=== PATIENT | female | born 1960 | race Caucasian/White ===

== ENCOUNTER → 2016-04-24 | Outpatient (CLI) | payer MEDICAID, MEDICARE ==
[~2016-04-24] MED LIST: ABIL5TAB OR; CRES20TA OR; EFFE75CA75 OR; NEUR100C OR; NEUR300C OR; OMEP20TA7 OR; TRAZ100T OR; TRIC145T19 OR
[2016-04-24 08:32] LABS: ALBUMIN 3.7 GM/DL (3.2-5.2); ALBUMIN/GLOBULIN RATIO 1.12 (1.00-1.93); ALKALINE PHOSPHATASE 97 U/L (45-117); ALT/SGPT 20 U/L (12-78); ANION GAP 8 MEQ/L (8-16); AST/SGOT 17 U/L (15-37); BILIRUBIN,TOTAL 0.3 MG/DL (0.2-1.0); BLOOD UREA NITROGEN 14 MG/DL (7-18); CALCIUM LEVEL 9.9 MG/DL (8.5-10.1); CARBON DIOXIDE LEVEL 28 MEQ/L (21-32); CHLORIDE LEVEL 102 MEQ/L (98-107); CHOLESTEROL LEVEL 256 MG/DL (<200); CREATININE FOR GFR 0.83 MG/DL (0.55-1.02); GLOMERULAR FILTRATION RATE > 60.0 (>51); GLUCOSE, FASTING 104 MG/DL (70-105); POTASSIUM SERUM 4.6 MEQ/L (3.5-5.1); SODIUM LEVEL 138 MEQ/L (136-145); TRIGLYCERIDES LEVEL 192 MG/DL (<150)
[2016-04-24 08:44] LABS: MEAN CORPUSCULAR HEMOGLOBIN 27.7 pg (27.0-33.0); MEAN CORPUSCULAR HGB CONC 33.6 g/dl (32.0-36.5); MEAN CORPUSCULAR VOLUME 82.5 fl (80.0-96.0); RED CELL DISTRIBUTION WIDTH 14.3 % (11.5-14.5); WHITE BLOOD COUNT 6.4 K/mm3 (4.0-10.0)
== END ==
LOC: M LAB 07:22
PROVIDERS: ATTEND Nurse Practitioner Family
DX: E78.5 Hyperlipidemia, unspecified (principal); E55.9 Vitamin D deficiency, unspecified; D64.9 Anemia, unspecified

== ENCOUNTER 2016-05-24 06:07 | Emergency (ER) | payer MEDICARE ==
[2016-05-24] MEDS ORDERED: ONDANSETRON 4MG/2ML VIAL (J2405) As Ordered ONE (07:50)
[2016-05-24] MEDS ORDERED: MORPHINE 4 MG/ML 1ML SYRINGE As Ordered ONE (07:50)
--- NOTE | 2016-05-24 07:52 | REP ---
Clinical: Trauma. Technique: AP and Y view right shoulder . Findings: The patient is status post anteroinferior glenohumeral joint dislocation. Hill-Sachs deformity cannot be excluded. Acromioclavicular joint is normal. Surrounding soft tissues are unremarkable. Old rib fractures identified. Impression: Acute anteroinferior glenohumeral joint dislocation. Signed by Josr Rogel MD 05/24/2016 07:44 A
--- NOTE | 2016-05-24 09:10 | REP ---
Clinical: Status post reduction. Technique: Single frontal neutral view of the right shoulder. Findings: Seemingly satisfactory reduction is appreciated. Subtle Hill-Sachs deformity along the visualized lateral aspect of the humeral head is suggested. Cortical irregularity at the acromioclavicular joint suggests underlying degenerative change. Impression: Seemingly satisfactory reduction. Subtle Hill-Sachs deformity to the humeral head. Mild degenerative changes at the acromioclavicular joint. Signed by Josr Rogel MD 05/24/2016 09:01 A
--- NOTE | 2016-05-24 09:25 | EDDOCDS ---
Nurse's Notes [facility] Name: Hiwot Doe Age: 55 yrs Sex: Female : 1960 Arrival Date: 05/24/2016 Time: 06:07 Bed 1 Private MD: Diagnosis: Recurrent dislocation, right shoulder-reduced Presentation: 05/24 06:10 Presenting complaint: Patient states: pt states she was playing with her cat and mlc tripped. pt reports shoulder is out of place, this has happened 4 times before. pt reports she is due for surgery to correct issue. Adult Sepsis Screening: The patient does not have new or worsening altered mentation. Patient's respiratory rate is less than 22. Systolic blood pressure is greater than 100. Patient has a qSOFA score of 0- Negative Sepsis Screen. Suicide/Homicide risk assessment- the patient denies having any suicidal and/or homicidal ideations and does not present with any other emotional, behavioral or mental health complaints. Status: Patient is not a air deodorizer servicer or dependent. Transition of care: patient was not received from another setting of care. 06:10 Acuity: REMY Level 3 [facility] 06:10 Method Of Arrival: Walkin/Carried/Asstd mlc Triage Assessment: 06:12 General: Appears in no apparent distress, Behavior is cooperative. Pain: Location: [facility] anterior aspect of right shoulder Pain currently is 8 out of 10 on a pain scale. HIV screening NA for this visit Offered previously. The patient is triaged at the bedside. See Assessment in Nurses Notes section of ED record. Neurological: Level of Consciousness is awake, alert, Oriented to person, place, time. Cardiovascular: Capillary refill < 3 seconds. Respiratory: Airway is patent Respiratory effort is even, unlabored, Respiratory pattern is regular. 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 Abilify 5 mg Oral tab 1 tab once daily 2. Effexor 150mg Oral 150 mg daily 3. omeprazole 20 mg Oral cpDR 1 cap once daily - PMHx: Anxiety; Depression; GERD; Alcoholism; - PSHx: left humerus surgery; - The history from nurses notes was reviewed: and I agree with what is documented. - Social history: Smoking status: Patient uses tobacco products, current every day smoker. No barriers to communication noted, The patient speaks fluent Tajik. - Family history: Not pertinent. - : The pt / caregiver states he / she is not on anticoagulants. Home medication list is obtained from the patient. - Hospitalizations: : No recent hospitalization is reported. - Exposure Risk Screening:: None identified. - Immunization history:: All immunizations up-to-date. - Social history:: the patient is a non-smoker, the patient drinks alcohol, including recently. Screenin:15 Screening information is obtained from the patient. Fall risk: No risks identified. ja5 Assistance ADL's: requires no assistance with activities of daily living. Abuse/DV Screen: The patient / caregiver reports he/she is: not in a situation that causes fear, pain or injury. Nutritional screening: On no prescribed diet. Advance Directives: Currently, there is no health care proxy. There is no active DNR order. There is no living will. There is no Power of Painter Drum. home support is adequate. Assessment: 06:31 General: Appears in no apparent distress, comfortable, Behavior is appropriate for age, cf2 cooperative. Pain:. Neurological: No deficits noted. EENT: No deficits noted. Cardiovascular: No deficits noted. Respiratory: No deficits noted. GI: No deficits noted. : No deficits noted. Derm: No deficits noted. Musculoskeletal: Circulation, motion, and sensation intact Capillary refill < 3 seconds Range of motion limited in right shoulder. Injury Description: No known injury. 07:13 General: Appears uncomfortable, Behavior is appropriate for age, cooperative. Pain: ja5 Location: right shoulder Pain currently is 10 out of 10 on a pain scale. Neurological: Oriented to person, place, time. Cardiovascular: Capillary refill < 3 seconds Heart tones S1 S2 present Pulses are palpable in right radial artery. Respiratory: Airway is patent Respiratory effort is even, unlabored. Derm: Skin is pink, warm & dry. Musculoskeletal: Circulation, motion, and sensation intact Range of motion limited in right shoulder. 08:15 General: Patient in stretcher, SR on transfer controller respirations even and unlabored, ja5 color is pink, family at bedside. Provider at bedside to manually manipulate right shoulder. Morphine and zofran previously administered. Shoulder was successfully put back into place and patient states "oh this feels much better already." Bed in low position, call hassan in reach.. 09:11 General: Appears in no apparent distress, comfortable, Behavior is appropriate for age, ja5 cooperative. Neurological: Oriented to person, place, time. Cardiovascular: Capillary refill < 3 seconds Heart tones S1 S2 present Pulses are palpable in right radial artery Rhythm is sinus rhythm No ectopy. Respiratory: Airway is patent Respiratory effort is even, unlabored. Derm: Skin is pink, warm & dry. Musculoskeletal: Circulation, motion, and sensation intact Range of motion limited in right shoulder and right arm. 09:22 General: Patient ambulatory with steady gait, discharged home with family present, ja5 discharge instructions received, patient reported that she is not driving home and that she "feels so much better." . Vital Signs: 06:12 BP 125 / 78; Pulse 98; Resp 20; Temp 97.7(O); Pulse Ox 96% ; Weight 74.84 kg (R); [facility] Height 5 ft. 8 in. (172.72 cm) (R); Pain 8/10; 07:31 BP 144 / 96; Pulse 84; Resp 20; Temp 96.8(O); Pulse Ox 97% on R/A; Pain 10/10; ja5 09:06 BP 157 / 99; Pulse 90; Resp 20; Temp 97.6(O); Pulse Ox 98% on R/A; Pain 2/10; ja5 09:07 Pain 2/10; ja5 06:12 Body Mass Index 25.09 (74.84 kg, 172.72 cm) [facility] Vitals: 06:12 Log In Time: May 24, 2016 at 06:08. [facility] ED Course: 06:08 Patient visited by Sue Mendez, Reg. hs2 06:08 Patient visited by Sue Mendez, Reg. hs2 06:08 Patient moved to [facility] hs2 06:11 Triage Initiated [facility] 06:16 Patient visited by Rina Degroot RN. [facility] 06:17 Ester Colon,KAREL is Primary Nurse. cf2 06:20 Patient moved to [facility] 06:31 Patient visited by Ester Colon,KAREL. cf2 06:31 The patient / caregiver is instructed regarding the plan of care and ED course. cf2 06:49 Patient visited by Ester Colon,KAREL. cf2 06:49 Patient visited by Ester Colon RN. cf2 07:09 Bobby Grant MD is Attending Physician. pc 07:11 Patient visited by Bobby Grant MD. pc 07:12 Jordyn Da Silva RN is Primary Nurse. jc4 07:16 Patient visited by Lashae Mercado RN. ja5 07:49 Patient moved to [facility] 08:08 Inserted saline lock: 20 gauge in left antecubital area. ja5 08:09 Patient visited by Lashae Mercado RN. ja5 08:10 Shoulder (1 View) Returned. EDMS 08:15 Assist provider with reduction of right shoulder. ja5 08:20 Shoulder immobilizer applied on right shoulder. ja5 08:49 Tho Goldberg is Referral Physician. pc 09:07 [facility] Payment Agreement was scanned into [employer] and attached to record. mm15 09:10 Discontinued lock intact, bleeding controlled, pressure dressing applied, No ja5 redness/swelling at site. Administered Medications: 08:00 Drug: Ondansetron 4 mg [ondansetron HCl 2 mg/mL intravenous solution (2 mL)] Route: ja5 IVP; Site: left antecubital; 08:08 Drug: morphine 4 mg [morphine 4 mg/mL intravenous cartridge (1 mL)] Route: IVP; Site: ja5 left antecubital; 09:07 Follow up: Pain 2/10 Adult ja5 Order Results: Radiology Order: Shoulder (1 View) Test: Shoulder (1 View) REASON FOR EXAMINATION: Trauma; Clinical: Trauma.; ; Technique: AP and Y view right shoulder .; ; Findings:; The patient is status post anteroinferior glenohumeral joint dislocation.; Hill-Sachs deformity cannot be excluded. Acromioclavicular joint is normal.; Surrounding soft tissues are unremarkable. Old rib fractures identified.; ; Impression:; Acute anteroinferior glenohumeral joint dislocation.; ; ; Signed by; Josr Rogel MD 05/24/2016 07:44 A; Outcome: 08:49 Discharge ordered by Provider. pc 09:20 Discharge Assessment: Patient awake, alert and oriented x 3. No cognitive and/or ja5 functional deficits noted. Patient verbalized understanding of disposition instructions. Patient awake and alert. patient administered narcotics - yes. Pt provided with safe discharge. The following High Risk Discharge criteria are identified: None. Discharged to home via ambulance, with parent. Condition: stable. Discharge instructions given to patient, Instructed on discharge instructions, follow up and referral plans. medication usage, no driving heavy equipment, use of immobilizer Demonstrated understanding of instructions, medications, Pt was receptive of discharge instructions/ teaching. Prescriptions given X 1. No special radiology studies were completed. Property :Personal belongings accompany Pt. 09:25 Patient left the ED. [email or web address] Signatures: Dispatcher [employer] EDMS Bobby Grant MD MD pc Johnson, Bruce, RN RN Dav Groves RN RN Jordyn Sanchez RN RN jc4 Hugo Montemayor mm15 Rina Degroot,RN RN [facility] Sue Mendez, Reg Reg hs2 Ester ColonRN RN cf2 Lashae MercadoRN RN [email or web address] Corrections: (The following items were deleted from the chart) 07:31 07:13 Cardiovascular: Capillary refill < 3 seconds Heart tones S1 S2 present ja5 ja5 09:17 09:13 General: ja5 5 :19 08:15 Assist provider with reduction of right shoulder ja5 ja5 :19 08:15 Discontinued lock intact, bleeding controlled, pressure dressing applied, No ja5 redness/swelling at site. 5 : 09:21 Shoulder immobilizer applied on right shoulder. 5 [facility] MTDD
--- NOTE | 2016-05-24 09:25 | EDDOCDS ---
Physician Documentation [facility] Name: Hiwot Doe Age: 55 yrs Sex: Female : 1960 Arrival Date: 05/24/2016 Time: 06:07 Bed 1 Private MD: Disposition: 05/24 08:47 Critical Care: Critical care not applicable. Disposition: 05/24/16 08:49 Discharged to Home/Self Care. Impression: Recurrent dislocation, right shoulder - reduced. - Condition is Stable. - Discharge Instructions: Shoulder Dislocation, Shoulder Immobilizer. - Prescriptions for [place] 5- 325 mg Oral Tablet - take 1 tablet by ORAL route every 6 hours As needed MDD: 4 tabs; 20 tablet. - Medication Reconciliation, Local Pharmacy Hours form. - Follow up: Tho Goldberg; When: Call to arrange an appointment; Reason: Recheck today's complaints, Continuance of care. - Problem is new. - Symptoms are resolved. HPI: 07:16 This 55 yrs old Female presents to ER via Walkin/Carried/Asstd with pc complaints of Shoulder Injury. 07:16 The history is obtained from the patient. She dislocated her right shoulder reaching for her cat. It is her 5th such dislocation without trauma. It was reduced in the ED this morning, by Dr. Nobles, without sedation and with ease, with the shoulder falling out of joint with gravity. At their worst, the symptoms were a 8 out of 10. In the emergency department, the symptoms are a 8 out of 10. The patient has been recently seen by an orthopedic surgeon. Historical: - Allergies: No known drug Allergies; - Home Meds: 1. Abilify 5 mg Oral tab 1 tab once daily 2. Effexor 150mg Oral 150 mg daily 3. omeprazole 20 mg Oral cpDR 1 cap once daily - PMHx: Anxiety; Depression; GERD; Alcoholism; - PSHx: left humerus surgery; - The history from nurses notes was reviewed: and I agree with what is documented. - Social history: Smoking status: Patient uses tobacco products, current every day smoker. No barriers to communication noted, The patient speaks fluent Vietnamese. - Family history: Not pertinent. - : The pt / caregiver states he / she is not on anticoagulants. Home medication list is obtained from the patient. - Hospitalizations: : No recent hospitalization is reported. - Exposure Risk Screening:: None identified. - Immunization history:: All immunizations up-to-date. - Social history:: the patient is a non-smoker, the patient drinks alcohol, including recently. 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 pc Exam: 07:16 General Appearance: alert, the patient is in mild distress, strong odor of alcohol. pc 07:16 Extremities: grossly normal except: noted in the anterior aspect of right shoulder: anterior fullness and decreased ROM. NVT normal distally, vadim. axillary nerve.. Vital Signs: 06:12 BP 125 / 78; Pulse 98; Resp 20; Temp 97.7(O); Pulse Ox 96% ; Weight 74.84 kg / 164.99 mlc lbs (R); Height 5 ft. 8 in. (172.72 cm) (R); Pain 8/10; 07:31 BP 144 / 96; Pulse 84; Resp 20; Temp 96.8(O); Pulse Ox 97% on R/A; Pain 10/10; ja5 09:06 BP 157 / 99; Pulse 90; Resp 20; Temp 97.6(O); Pulse Ox 98% on R/A; Pain 2/10; ja5 09:07 Pain 2/10; ja5 06:12 Body Mass Index 25.09 (74.84 kg, 172.72 cm) mlc Procedures: 08:25 Joint Reduction: of the right shoulder, using traction, Immobilized with shoulder pc immoblizer. Patient tolerated well. 08:47 Joint Reduction: Post reduction film - reveals normal alignment. pc MDM: 06:26 Shoulder (1 View) Ordered. EDMS 07:24 Differential Diagnosis: recurrent dislocation of right shoulder with suspected pc completed rotator cuff tear. Plan: d/w Ortho. 07:49 IV Saline Lock ordered. pc 07:49 morphine 4 mg IVP once ordered. pc 07:49 Ondansetron 4 mg IVP once ordered. pc 07:50 NOTHING BY MOUTH+DIET ordered. EDMS 08:15 Shoulder (1 View) Reviewed. pc 08:27 Shoulder (1 View) Ordered. EDMS 08:47 Data reviewed: old medical records, vital signs, nurses notes, all radiology studies pc and available results. Test interpretation: X-RAY - interpreted by Radiologist and personally reviewed, Shoulder Right Dislocation - anterior. 08:47 Test interpretation: X-RAY - interpreted by me, Shoulder Right Post-reduction Reduced pc with normal allignment. The patient has been re-examined and re-evaluated. The patient's symptoms have resolved after treatment. Physician consultation: Dr. Tho Goldberg regarding patient's condition, and advises the medications/treatment as provided. and agrees with the treatment provided and advises the discharge plans as outlined. Disposition: The historical points, examination findings, and any diagnostic results supporting the provided diagnosis, were discussed with the patient or legal guardian. The need for outpatient follow up with the provider listed on their discharge instructions was discussed. They were encouraged to return to [facility], or the nearest ED, if symptoms worsen/persist, or for any other questions/concerns. 09:01 Financial registration complete. mm15 : [facility] Payment Agreement was scanned into [employer] and attached to record. mm15 Administered Medications: 08:00 Drug: Ondansetron 4 mg [ondansetron HCl 2 mg/mL intravenous solution (2 mL)] Route: ja5 IVP; Site: left antecubital; 08:08 Drug: morphine 4 mg [morphine 4 mg/mL intravenous cartridge (1 mL)] Route: IVP; Site: ja5 left antecubital; 09:07 Follow up: Pain 2/10 Adult ja5 Signatures: Dispatcher [employer] Bobby Simon MD MD pc McGrath, Marlynn mm15 Rina Degroot RN RN [facility] Ester Colon RN RN 2 Lashae Mercado RN RN ja5 The chart was reviewed and I authenticate all verbal orders and agree with the evaluation and treatment provided.Attachments: : [facility] Payment Agreement mm15 MTDD
--- NOTE | 2016-05-26 10:25 | EDDOCDS ---
Physician Documentation [facility] Name: Hiwot Doe Age: 55 yrs Sex: Female : 1960 Arrival Date: 05/24/2016 Time: 06:07 Bed 1 Private MD: Disposition: 05/24 08:47 Critical Care: Critical care not applicable. Disposition: 05/24/16 08:49 Discharged to Home/Self Care. Impression: Recurrent dislocation, right shoulder - reduced. - Condition is Stable. - Discharge Instructions: Shoulder Dislocation, Shoulder Immobilizer. - Prescriptions for [place] 5- 325 mg Oral Tablet - take 1 tablet by ORAL route every 6 hours As needed MDD: 4 tabs; 20 tablet. - Medication Reconciliation, Local Pharmacy Hours form. - Follow up: Tho Goldberg; When: Call to arrange an appointment; Reason: Recheck today's complaints, Continuance of care. - Problem is new. - Symptoms are resolved. HPI: 07:16 This 55 yrs old Female presents to ER via Walkin/Carried/Asstd with pc complaints of Shoulder Injury. 07:16 The history is obtained from the patient. She dislocated her right shoulder reaching for her cat. It is her 5th such dislocation without trauma. It was reduced in the ED this morning, by Dr. Nobles, without sedation and with ease, with the shoulder falling out of joint with gravity. At their worst, the symptoms were a 8 out of 10. In the emergency department, the symptoms are a 8 out of 10. The patient has been recently seen by an orthopedic surgeon. Historical: - Allergies: No known drug Allergies; - Home Meds: 1. Abilify 5 mg Oral tab 1 tab once daily 2. Effexor 150mg Oral 150 mg daily 3. omeprazole 20 mg Oral cpDR 1 cap once daily - PMHx: Anxiety; Depression; GERD; Alcoholism; - PSHx: left humerus surgery; - The history from nurses notes was reviewed: and I agree with what is documented. - Social history: Smoking status: Patient uses tobacco products, current every day smoker. No barriers to communication noted, The patient speaks fluent Sudanese. - Family history: Not pertinent. - : The pt / caregiver states he / she is not on anticoagulants. Home medication list is obtained from the patient. - Hospitalizations: : No recent hospitalization is reported. - Exposure Risk Screening:: None identified. - Immunization history:: All immunizations up-to-date. - Social history:: the patient is a non-smoker, the patient drinks alcohol, including recently. 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 pc Exam: 07:16 General Appearance: alert, the patient is in mild distress, strong odor of alcohol. pc 07:16 Extremities: grossly normal except: noted in the anterior aspect of right shoulder: anterior fullness and decreased ROM. NVT normal distally, vadim. axillary nerve.. Vital Signs: 06:12 BP 125 / 78; Pulse 98; Resp 20; Temp 97.7(O); Pulse Ox 96% ; Weight 74.84 kg / 164.99 mlc lbs (R); Height 5 ft. 8 in. (172.72 cm) (R); Pain 8/10; 07:31 BP 144 / 96; Pulse 84; Resp 20; Temp 96.8(O); Pulse Ox 97% on R/A; Pain 10/10; ja5 08:04 BP 161 / 101 (auto/); ja5 08:04 Pulse 83 MON; Pulse Ox 97% ; ja5 08:07 BP 161 / 103 (auto/); ja5 08:08 Pulse 87 MON; Pulse Ox 97% ; ja5 08:15 BP 156 / 97 (auto/); ja5 08:16 Pulse 85 MON; Pulse Ox 95% ; ja5 08:30 BP 163 / 106 (auto/); ja5 08:30 Pulse 83 MON; Pulse Ox 99% ; ja5 09:06 BP 157 / 99; Pulse 90; Resp 20; Temp 97.6(O); Pulse Ox 98% on R/A; Pain 2/10; ja5 09:07 Pain 2/10; ja5 06:12 Body Mass Index 25.09 (74.84 kg, 172.72 cm) mlc Procedures: 08:25 Joint Reduction: of the right shoulder, using traction, Immobilized with shoulder pc immoblizer. Patient tolerated well. 08:47 Joint Reduction: Post reduction film - reveals normal alignment. pc MDM: 06:26 Shoulder (1 View) Ordered. EDMS 07:24 Differential Diagnosis: recurrent dislocation of right shoulder with suspected pc completed rotator cuff tear. Plan: d/w Ortho. 07:49 IV Saline Lock ordered. pc 07:49 morphine 4 mg IVP once ordered. pc 07:49 Ondansetron 4 mg IVP once ordered. pc 07:50 NOTHING BY MOUTH+DIET ordered. EDMS 08:15 Shoulder (1 View) Reviewed. pc 08:27 Shoulder (1 View) Ordered. EDMS 08:47 Data reviewed: old medical records, vital signs, nurses notes, all radiology studies pc and available results. Test interpretation: X-RAY - interpreted by Radiologist and personally reviewed, Shoulder Right Dislocation - anterior. 08:47 Test interpretation: X-RAY - interpreted by me, Shoulder Right Post-reduction Reduced pc with normal allignment. The patient has been re-examined and re-evaluated. The patient's symptoms have resolved after treatment. Physician consultation: Dr. Tho Goldberg regarding patient's condition, and advises the medications/treatment as provided. and agrees with the treatment provided and advises the discharge plans as outlined. Disposition: The historical points, examination findings, and any diagnostic results supporting the provided diagnosis, were discussed with the patient or legal guardian. The need for outpatient follow up with the provider listed on their discharge instructions was discussed. They were encouraged to return to [facility], or the nearest ED, if symptoms worsen/persist, or for any other questions/concerns. 09:01 Financial registration complete. mm15 09:07 [facility] Payment Agreement was scanned into [employer] and attached to record. mm15 Administered Medications: 08:00 Drug: Ondansetron 4 mg [ondansetron HCl 2 mg/mL intravenous solution (2 mL)] Route: ja5 IVP; Site: left antecubital; 08:08 Drug: morphine 4 mg [morphine 4 mg/mL intravenous cartridge (1 mL)] Route: IVP; Site: ja5 left antecubital; 09:07 Follow up: Pain 2/10 Adult ja5 Signatures: Dispatcher [employer] EDAR Bobby Grant MD MD pc McGrath, Marlynn mm15 Rina Degroot RN RN [facility] Ester Colon RN RN 2 Lashae Mercado RN RN ja5 The chart was reviewed and I authenticate all verbal orders and agree with the evaluation and treatment provided.Attachments: 09:07 [facility] Payment Agreement mm15 Chart Complete MTDD
--- NOTE | 2016-05-26 10:25 | EDDOCDS ---
Physician Documentation [facility] Name: Hiwot Doe Age: 55 yrs Sex: Female : 1960 Arrival Date: 05/24/2016 Time: 06:07 Bed 1 Private MD: Disposition: 05/24 08:47 Critical Care: Critical care not applicable. Disposition: 05/24/16 08:49 Discharged to Home/Self Care. Impression: Recurrent dislocation, right shoulder - reduced. - Condition is Stable. - Discharge Instructions: Shoulder Dislocation, Shoulder Immobilizer. - Prescriptions for [place] 5- 325 mg Oral Tablet - take 1 tablet by ORAL route every 6 hours As needed MDD: 4 tabs; 20 tablet. - Medication Reconciliation, Local Pharmacy Hours form. - Follow up: Tho Goldberg; When: Call to arrange an appointment; Reason: Recheck today's complaints, Continuance of care. - Problem is new. - Symptoms are resolved. HPI: 07:16 This 55 yrs old Female presents to ER via Walkin/Carried/Asstd with pc complaints of Shoulder Injury. 07:16 The history is obtained from the patient. She dislocated her right shoulder reaching for her cat. It is her 5th such dislocation without trauma. It was reduced in the ED this morning, by Dr. Nobles, without sedation and with ease, with the shoulder falling out of joint with gravity. At their worst, the symptoms were a 8 out of 10. In the emergency department, the symptoms are a 8 out of 10. The patient has been recently seen by an orthopedic surgeon. Historical: - Allergies: No known drug Allergies; - Home Meds: 1. Abilify 5 mg Oral tab 1 tab once daily 2. Effexor 150mg Oral 150 mg daily 3. omeprazole 20 mg Oral cpDR 1 cap once daily - PMHx: Anxiety; Depression; GERD; Alcoholism; - PSHx: left humerus surgery; - The history from nurses notes was reviewed: and I agree with what is documented. - Social history: Smoking status: Patient uses tobacco products, current every day smoker. No barriers to communication noted, The patient speaks fluent [place]. - Family history: Not pertinent. - : The pt / caregiver states he / she is not on anticoagulants. Home medication list is obtained from the patient. - Hospitalizations: : No recent hospitalization is reported. - Exposure Risk Screening:: None identified. - Immunization history:: All immunizations up-to-date. - Social history:: the patient is a non-smoker, the patient drinks alcohol, including recently. 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 pc Exam: 07:16 General Appearance: alert, the patient is in mild distress, strong odor of alcohol. pc 07:16 Extremities: grossly normal except: noted in the anterior aspect of right shoulder: anterior fullness and decreased ROM. NVT normal distally, vadim. axillary nerve.. Vital Signs: 06:12 BP 125 / 78; Pulse 98; Resp 20; Temp 97.7(O); Pulse Ox 96% ; Weight 74.84 kg / 164.99 mlc lbs (R); Height 5 ft. 8 in. (172.72 cm) (R); Pain 8/10; 07:31 BP 144 / 96; Pulse 84; Resp 20; Temp 96.8(O); Pulse Ox 97% on R/A; Pain 10/10; ja5 08:04 BP 161 / 101 (auto/); ja5 08:04 Pulse 83 MON; Pulse Ox 97% ; ja5 08:07 BP 161 / 103 (auto/); ja5 08:08 Pulse 87 MON; Pulse Ox 97% ; ja5 08:15 BP 156 / 97 (auto/); ja5 08:16 Pulse 85 MON; Pulse Ox 95% ; ja5 08:30 BP 163 / 106 (auto/); ja5 08:30 Pulse 83 MON; Pulse Ox 99% ; ja5 09:06 BP 157 / 99; Pulse 90; Resp 20; Temp 97.6(O); Pulse Ox 98% on R/A; Pain 2/10; ja5 09:07 Pain 2/10; ja5 06:12 Body Mass Index 25.09 (74.84 kg, 172.72 cm) mlc Procedures: 08:25 Joint Reduction: of the right shoulder, using traction, Immobilized with shoulder pc immoblizer. Patient tolerated well. 08:47 Joint Reduction: Post reduction film - reveals normal alignment. pc MDM: 06:26 Shoulder (1 View) Ordered. EDMS 07:24 Differential Diagnosis: recurrent dislocation of right shoulder with suspected pc completed rotator cuff tear. Plan: d/w Ortho. 07:49 IV Saline Lock ordered. pc 07:49 morphine 4 mg IVP once ordered. pc 07:49 Ondansetron 4 mg IVP once ordered. pc 07:50 NOTHING BY MOUTH+DIET ordered. EDMS 08:15 Shoulder (1 View) Reviewed. pc 08:27 Shoulder (1 View) Ordered. EDMS 08:47 Data reviewed: old medical records, vital signs, nurses notes, all radiology studies pc and available results. Test interpretation: X-RAY - interpreted by Radiologist and personally reviewed, Shoulder Right Dislocation - anterior. 08:47 Test interpretation: X-RAY - interpreted by me, Shoulder Right Post-reduction Reduced pc with normal allignment. The patient has been re-examined and re-evaluated. The patient's symptoms have resolved after treatment. Physician consultation: Dr. Tho Goldberg regarding patient's condition, and advises the medications/treatment as provided. and agrees with the treatment provided and advises the discharge plans as outlined. Disposition: The historical points, examination findings, and any diagnostic results supporting the provided diagnosis, were discussed with the patient or legal guardian. The need for outpatient follow up with the provider listed on their discharge instructions was discussed. They were encouraged to return to [facility], or the nearest ED, if symptoms worsen/persist, or for any other questions/concerns. 09:01 Financial registration complete. mm15 09:07 [facility] Payment Agreement was scanned into [employer] and attached to record. mm15 Administered Medications: 08:00 Drug: Ondansetron 4 mg [ondansetron HCl 2 mg/mL intravenous solution (2 mL)] Route: ja5 IVP; Site: left antecubital; 08:08 Drug: morphine 4 mg [morphine 4 mg/mL intravenous cartridge (1 mL)] Route: IVP; Site: ja5 left antecubital; 09:07 Follow up: Pain 2/10 Adult ja5 Signatures: Dispatcher [employer] EDMT Bobby Grant MD MD pc McGrath, Marlynn mm15 Rnia Degroot RN RN [facility] Ester Colon RN RN 2 Lashae Mercado RN RN ja5 The chart was reviewed and I authenticate all verbal orders and agree with the evaluation and treatment provided.Attachments: 09:07 [facility] Payment Agreement mm15 Chart Complete MTDD
--- NOTE | 2016-05-26 10:25 | EDDOCDS ---
Nurse's Notes [facility] Name: Hiwot Doe Age: 55 yrs Sex: Female : 1960 Arrival Date: 05/24/2016 Time: 06:07 Bed 1 Private MD: Diagnosis: Recurrent dislocation, right shoulder-reduced Presentation: 05/24 06:10 Presenting complaint: Patient states: pt states she was playing with her cat and mlc tripped. pt reports shoulder is out of place, this has happened 4 times before. pt reports she is due for surgery to correct issue. Adult Sepsis Screening: The patient does not have new or worsening altered mentation. Patient's respiratory rate is less than 22. Systolic blood pressure is greater than 100. Patient has a qSOFA score of 0- Negative Sepsis Screen. Suicide/Homicide risk assessment- the patient denies having any suicidal and/or homicidal ideations and does not present with any other emotional, behavioral or mental health complaints. 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 Transition of care: patient was not received from another setting of care. 06:10 Acuity: REMY Level 3 [facility] 06:10 Method Of Arrival: Walkin/Carried/Asstd mlc Triage Assessment: 06:12 General: Appears in no apparent distress, Behavior is cooperative. Pain: [place] [facility] anterior aspect of right shoulder Pain currently is 8 out of 10 on a pain scale. HIV screening NA for this visit Offered previously. The patient is triaged at the bedside. See Assessment in Nurses Notes section of ED record. Neurological: Level of Consciousness is awake, alert, Oriented to person, place, time. Cardiovascular: Capillary refill < 3 seconds. Respiratory: Airway is patent Respiratory effort is even, unlabored, Respiratory pattern is regular. 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 Abilify 5 mg Oral tab 1 tab once daily 2. Effexor 150mg Oral 150 mg daily 3. omeprazole 20 mg Oral cpDR 1 cap once daily - PMHx: Anxiety; Depression; GERD; Alcoholism; - PSHx: left humerus surgery; - The history from nurses notes was reviewed: and I agree with what is documented. - Social history: Smoking status: Patient uses tobacco products, current every day smoker. No barriers to communication noted, The patient speaks fluent Ukrainian. - Family history: Not pertinent. - : The pt / caregiver states he / she is not on anticoagulants. Home medication list is obtained from the patient. - Hospitalizations: : No recent hospitalization is reported. - Exposure Risk Screening:: None identified. - Immunization history:: All immunizations up-to-date. - Social history:: the patient is a non-smoker, the patient drinks alcohol, including recently. Screenin:15 Screening information is obtained from the patient. Fall risk: No risks identified. ja5 Assistance ADL's: requires no assistance with activities of daily living. Abuse/DV Screen: The patient / caregiver reports he/she is: not in a situation that causes fear, pain or injury. Nutritional screening: On no prescribed diet. Advance Directives: Currently, there is no health care proxy. There is no active DNR order. There is no living will. There is no Power of Clinical Account Executive. home support is adequate. Assessment: 06:31 General: Appears in no apparent distress, comfortable, Behavior is appropriate for age, cf2 cooperative. Pain:. Neurological: No deficits noted. EENT: No deficits noted. Cardiovascular: No deficits noted. Respiratory: No deficits noted. GI: No deficits noted. : No deficits noted. Derm: No deficits noted. Musculoskeletal: Circulation, motion, and sensation intact Capillary refill < 3 seconds Range of motion limited in right shoulder. Injury Description: No known injury. 07:13 General: Appears uncomfortable, Behavior is appropriate for age, cooperative. Pain: ja5 Location: right shoulder Pain currently is 10 out of 10 on a pain scale. Neurological: Oriented to person, place, time. Cardiovascular: Capillary refill < 3 seconds Heart tones S1 S2 present Pulses are palpable in right radial artery. Respiratory: Airway is patent Respiratory effort is even, unlabored. Derm: Skin is pink, warm & dry. Musculoskeletal: Circulation, motion, and sensation intact Range of motion limited in right shoulder. 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 Provider at bedside to manually manipulate right shoulder. Morphine and zofran previously administered. Shoulder was successfully put back into place and patient states "oh this feels much better already." Bed in low position, call hassan in reach.. 09:11 General: Appears in no apparent distress, comfortable, Behavior is appropriate for age, ja5 cooperative. Neurological: Oriented to person, place, time. Cardiovascular: Capillary refill < 3 seconds Heart tones S1 S2 present Pulses are palpable in right radial artery Rhythm is sinus rhythm No ectopy. Respiratory: Airway is patent Respiratory effort is even, unlabored. Derm: Skin is pink, warm & dry. Musculoskeletal: Circulation, motion, and sensation intact Range of motion limited in right shoulder and right arm. 09:22 General: Patient ambulatory with steady gait, discharged home with family present, ja5 discharge instructions received, patient reported that she is not driving home and that she "feels so much better." . Vital Signs: 06:12 BP 125 / 78; Pulse 98; Resp 20; Temp 97.7(O); Pulse Ox 96% ; Weight 74.84 kg (R); [facility] Height 5 ft. 8 in. (172.72 cm) (R); Pain 8/10; 07:31 BP 144 / 96; Pulse 84; Resp 20; Temp 96.8(O); Pulse Ox 97% on R/A; Pain 10/10; ja5 08:04 BP 161 / 101 (auto/); ja5 08:04 Pulse 83 MON; Pulse Ox 97% ; ja5 08:07 BP 161 / 103 (auto/); ja5 08:08 Pulse 87 MON; Pulse Ox 97% ; ja5 08:15 BP 156 / 97 (auto/); ja5 08:16 Pulse 85 MON; Pulse Ox 95% ; ja5 08:30 BP 163 / 106 (auto/); ja5 08:30 Pulse 83 MON; Pulse Ox 99% ; ja5 09:06 BP 157 / 99; Pulse 90; Resp 20; Temp 97.6(O); Pulse Ox 98% on R/A; Pain 2/10; ja5 09:07 Pain 2/10; ja5 06:12 Body Mass Index 25.09 (74.84 kg, 172.72 cm) [facility] Vitals: 06:12 Log In Time: May 24, 2016 at 06:08. [facility] ED Course: 06:08 Patient visited by Sue Mendez, Reg. hs2 06:08 Patient visited by Sue Mendez, Reg. hs2 06:08 Patient moved to Waiting hs2 06:11 Triage Initiated [facility] 06:16 Patient visited by Rina Degroot RN. mlc 06:17 Ester Colon,KAREL is Primary Nurse. cf2 06:20 Patient moved to 5 cz 06:31 Patient visited by Ester Colon RN. cf2 06:31 The patient / caregiver is instructed regarding the plan of care and ED course. cf2 06:49 Patient visited by Ester Colon RN. cf2 06:49 Patient visited by Ester Colon RN. cf2 07:09 Bobby Grant MD is Attending Physician. pc 07:11 Patient visited by Bobby Grant MD. pc 07:12 Jordyn Da Silva RN is Primary Nurse. jc4 07:16 Patient visited by Lashae Mercado RN. ja5 07:49 Patient moved to [facility] 08:08 Inserted saline lock: 20 gauge in left antecubital area. ja5 08:09 Patient visited by Lashae Mercado RN. ja5 08:10 Shoulder (1 View) Returned. EDMS 08:15 Assist provider with reduction of right shoulder. ja5 08:20 Shoulder immobilizer applied on right shoulder. ja5 08:49 Tho Goldberg is Referral Physician. pc 09:07 [facility] Payment Agreement was scanned into [employer] and attached to record. mm15 09:10 Discontinued lock intact, bleeding controlled, pressure dressing applied, No ja5 redness/swelling at site. 09:39 Shoulder (1 View) Returned. EDMS Administered Medications: 08:00 Drug: Ondansetron 4 mg [ondansetron HCl 2 mg/mL intravenous solution (2 mL)] Route: ja5 IVP; Site: left antecubital; 08:08 Drug: morphine 4 mg [morphine 4 mg/mL intravenous cartridge (1 mL)] Route: IVP; Site: ja5 left antecubital; 09:07 Follow up: Pain 2/10 Adult ja5 Order Results: Radiology Order: Shoulder (1 View) Test: Shoulder (1 View) REASON FOR EXAMINATION: Trauma; Clinical: Trauma.; ; Technique: AP and Y view right shoulder .; ; Findings:; The patient is status post anteroinferior glenohumeral joint dislocation.; Hill-Sachs deformity cannot be excluded. Acromioclavicular joint is normal.; Surrounding soft tissues are unremarkable. Old rib fractures identified.; ; Impression:; Acute anteroinferior glenohumeral joint dislocation.; ; ; Signed by; Josr Rogel MD 05/24/2016 07:44 A; Radiology Order: Shoulder (1 View) Test: Shoulder (1 View) REASON FOR EXAMINATION: post-reduction; Clinical: Status post reduction.; ; Technique: Single frontal neutral view of the right shoulder.; ; Findings:; Seemingly satisfactory reduction is appreciated. Subtle Hill-Sachs deformity; along the visualized lateral aspect of the humeral head is suggested. Cortical; irregularity at the acromioclavicular joint suggests underlying degenerative; change.; ; Impression:; Seemingly satisfactory reduction.; Subtle Hill-Sachs deformity to the humeral head.; Mild degenerative changes at the acromioclavicular joint.; ; ; Signed by; Josr Rogel MD 05/24/2016 09:01 A; Outcome: 08:49 Discharge ordered by Provider. pc 09:20 Discharge Assessment: Patient awake, alert and oriented x 3. No cognitive and/or ja5 functional deficits noted. Patient verbalized understanding of disposition instructions. Patient awake and alert. patient administered narcotics - yes. Pt provided with safe discharge. The following High Risk Discharge criteria are identified: None. Discharged to home via ambulance, with parent. Condition: stable. Discharge instructions given to patient, Instructed on discharge instructions, follow up and referral plans. medication usage, no driving heavy equipment, use of immobilizer Demonstrated understanding of instructions, medications, Pt was receptive of discharge instructions/ teaching. Prescriptions given X 1. No special radiology studies were completed. Property :Personal belongings accompany Pt. 09:25 Patient left the ED. ja5 Signatures: Dispatcher [employer] EDMS Bobby Grant MD MD pc Johnson, Bruce, RN Dav Rollins RN RN cz Castle, Jennifer, RN RN Hugo Ng mm15 Rina Degroot RN RN [facility] Sue Mendez, Reg Reg hs2 Ester Colon RN RN cf2 Lashae Mercado RN RN ja5 Corrections: (The following items were deleted from the chart) 07:31 07:13 Cardiovascular: Capillary refill < 3 seconds Heart tones S1 S2 present ja5 ja5 09:13 General: ja5 jaAlesia 08:15 Assist provider with reduction of right shoulder zina ja5 08:15 Discontinued lock intact, bleeding controlled, pressure dressing applied, No ja5 redness/swelling at site. ja5 09:21 Shoulder immobilizer applied on right shoulder. ja5 ja5 Chart Complete MTDD
== END 2016-05-24 09:25 | disposition home or self-care (01) ==
LOC: M ED 06:07
DX: M24.411 Recurrent dislocation, right shoulder (principal); F41.9 Anxiety disorder, unspecified; F32.9 Major depressive disorder, single episode, unspecified; K21.9 Gastro-esophageal reflux disease without esophagitis; Z78.0 Asymptomatic menopausal state; F10.10 Alcohol abuse, uncomplicated; Z79.899 Other long term (current) drug therapy
CPT/HCPCS: 23650; 73020; 96374; 96375; 99285; J2405

== ENCOUNTER → 2016-06-12 | Outpatient (CLI) | payer MEDICARE ==
[~2016-06-12] MED LIST changes: +CONRAY-43 43% 50ML VIAL (Q9960) As Ordered ONE
--- NOTE | 2016-06-12 09:59 | REP ---
MR arthrography right shoulder: with pre and post intra-articular gadolinium enhanced saline injected imaging: History: Right shoulder pain. Instability with multiple dislocation injuries, most recent of which was 2 weeks ago according to the patient. Comparison radiographs are from May 24, 2016. Technique: The injection procedure is performed and dictated separately. Pre and post intra-articular gadolinium enhanced saline injected imaging is acquired. Imaging planes include axial, oblique coronal, oblique sagittal and ABER projection images. T1 T2-weighted scans are included with and without fat saturation. MRI findings: Pre-injection MR imaging shows a glenohumeral joint effusion and a moderate size subacromial subdeltoid bursal effusion. There is a small quantity of fluid in the hypertrophied AC joint as well. Cortical and medullary bone signal intensity are normal except for some mild marrow edema in the superolateral aspect of the humeral head adjacent to a fairly large Hill-Sachs impaction fracture deformity. No bony Bankart fracture is appreciated. The glenohumeral articulation is normally aligned. The biceps tendon is in the bony bicipital groove and appears intact. There is an oval-shaped low T2 signal intensity loose body 6 mm in diameter in the caudal aspect axillary recess region of the glenohumeral articulation. Superior labrum appears intact. The anterior cartilaginous labrum appears deficient on pre-injection imaging. Pre-injection oblique coronal T1 and T2-weighted scans demonstrate attenuation and heterogeneous increased signal intensity in the supraspinatus tendon with focal T2 hyperintensity consistent with a partial thickness distal supraspinatus tendon tear. There is inferolateral spurring of the acromion process and mild inferior spurring of the distal clavicle at the AC joint. Minimal articular spurring is seen in the inferior margin of the humeral head. Post injection imaging shows good filling and enhancement of the right glenohumeral articulation. No other loose body is seen. There is an irregular and displaced tear of the anterior cartilaginous labrum. The infraspinatus and subscapularis tendons appear intact. Oblique coronal T1-weighted post injection imaging shows enhancement extending through the distal supraspinatus tendon and partially into the subacromial subdeltoid bursal effusion consistent with a full-thickness supraspinatus cuff tear. No other abnormality. Impression: 1. Evidence of recurrent glenohumeral instability with a large Hill-Sachs impaction fracture of the superolateral humeral head. There is a tear of the anterior cartilaginous labrum which appears deficient. A small loose body is seen. 2. There is evidence of a full-thickness supraspinatus cuff tear with diffuse attenuation of the distal supraspinatus tendon. Subacromial subdeltoid bursal effusion is seen. 3. AC joint osteoarthritis and acromion process spurring are also noted. Signed by Yosef Cervantes MD 06/12/2016 06:17 P
--- NOTE | 2016-06-12 18:22 | REP ---
Procedure: Right shoulder arthrogram The procedure was performed under the direct supervision of Dr. Cervantes. History: Right shoulder pain The benefits and risks including but not limited to pain, infection, bleeding and anaphylaxis were explained to the patient and informed consent was obtained. Technique: The right glenohumeral joint space was localized using fluoroscopic guidance. The skin was prepped and draped in a sterile fashion. 1% lidocaine was used as a local anesthetic. Using fluoroscopic guidance a 22 gauge spinal needle was inserted and advanced into the joint. 0.5 ml of Conray 43 was injected to verify placement. 11 ml of a solution containing 20 ml of sterile saline and 0.15 ml of ProHance was injected into the joint. The needle was removed and the patient was taken to MRI for postprocedural imaging. The the patient tolerated the procedure well and there were no immediate complications. Less than 1 second of fluoro time was utilized for this procedure. Reviewed by FREDIS Jones 06/12/2016 08:26 ASigned by Yosef Cervantes MD 06/12/2016 06:13 P
== END | disposition home or self-care (01) ==
LOC: M RADPRO 06:45
PROVIDERS: ATTEND Physician Assistant
DX: S42.201A Unspecified fracture of upper end of right humerus, initial encounter for closed fracture (principal); X58.XXXA Exposure to other specified factors, initial encounter; Y92.89 Other specified places as the place of occurrence of the external cause; Y93.89 Activity, other specified; Y99.8 Other external cause status; M75.92 Shoulder lesion, unspecified, left shoulder; M75.101 Unspecified rotator cuff tear or rupture of right shoulder, not specified as traumatic; M25.411 Effusion, right shoulder; M19.011 Primary osteoarthritis, right shoulder; M25.711 Osteophyte, right shoulder
CPT/HCPCS: 23350; 73223; 77002; A9576; Q9960

== ENCOUNTER → 2016-09-12 | Outpatient (CLI) | payer MEDICARE ==
[~2016-09-12] MED LIST changes: -CONRAY-43 43% 50ML VIAL (Q9960) As Ordered ONE
[2016-09-12 08:04] LABS: ANION GAP 8 MEQ/L (8-16); BLOOD UREA NITROGEN 18 MG/DL (7-18); CALCIUM LEVEL 9.4 MG/DL (8.5-10.1); CARBON DIOXIDE LEVEL 26 MEQ/L (21-32); CHLORIDE LEVEL 103 MEQ/L (98-107); CREATININE FOR GFR 0.84 MG/DL (0.55-1.02); GLOMERULAR FILTRATION RATE > 60.0 (>51); GLUCOSE, FASTING 101 MG/DL (70-105); POTASSIUM SERUM 4.4 MEQ/L (3.5-5.1); SODIUM LEVEL 137 MEQ/L (136-145)
--- NOTE | 2016-09-12 09:40 | REP ---
PA and lateral chest: Comparisons 05/05/2015. Lung alcantara are clear. Cardiac size is normal. The nila and mediastinum are unremarkable and unchanged. There are old healed right rib fractures, unchanged. There is a fixed hiatal hernia, unchanged. Impression: Essentially negative chest. No interval change. Fixed hiatal hernia is again identified. Signed by Channing Nj MD 09/12/2016 09:33 A
--- NOTE | 2016-09-12 17:00 | ECGEPIP ---
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
== END ==
LOC: M LAB 06:53
PROVIDERS: ATTEND Nurse Practitioner Family
DX: Z01.812 Encounter for preprocedural laboratory examination (principal); K44.9 Diaphragmatic hernia without obstruction or gangrene; F17.200 Nicotine dependence, unspecified, uncomplicated; I10 Essential (primary) hypertension

== ENCOUNTER 2016-11-27 08:15 | Outpatient (RCR) | payer MEDICAID, MEDICARE | END 2016-11-28 | LOC: M PT 08:15 | PROVIDERS: ATTEND Orthopaedic Surgery | DX: Z51.89 Encounter for other specified aftercare (principal); M25.311 Other instability, right shoulder | CPT/HCPCS: 97110; 97140; 97161; G8984; G8985 ==

== ENCOUNTER 2016-12-23 08:10 | Outpatient (RCR) | payer MEDICARE | END 2016-12-28 | LOC: M PT 08:10 | PROVIDERS: ATTEND Orthopaedic Surgery | DX: Z51.89 Encounter for other specified aftercare (principal); M25.311 Other instability, right shoulder | CPT/HCPCS: 97110; 97140; G8984; G8985 ==

== ENCOUNTER 2017-01-27 08:48 | Outpatient (RCR) | payer MEDICARE | END 2017-01-28 | disposition home or self-care (01) | LOC: M PT 08:48 | PROVIDERS: ATTEND Orthopaedic Surgery | DX: Z51.89 Encounter for other specified aftercare (principal); M25.311 Other instability, right shoulder | CPT/HCPCS: 97110; 97140; 97530; G8984; G8985; G8986 ==

== ENCOUNTER 2017-03-14 08:27 | Emergency (ER) | payer MEDICARE ==
[~2017-03-14] VITALS: Ht 172.7 cm; Wt 80.0 kg
[2017-03-14] MEDS ORDERED: FENO145T (09:14)
[2017-03-14] MEDS ORDERED: METO1TAB7 (09:14)
[2017-03-14] MEDS ORDERED: NORCO, ANEXSIA 5/325MG TABLET (HYDROcodone/ACETAMINOPHEN) PO ONE (09:30)
--- NOTE | 2017-03-14 10:05 | REP ---
Right shoulder four views: Comparison is 05/24/2016. The acromioclavicular joint demonstrates mild osteoarthritis. The subacromial space is unremarkable. No calcifications. I suspect a Hill-Sachs deformity of the humeral head compatible with prior this location. There is no acute dislocation. No acute fracture. Impression: Hill-Sachs deformity of the humeral head. No acute fracture or dislocation. Old right rib fractures are noted incidentally. Signed by Channing Nj MD 03/14/2017 09:56 A
[2017-03-14] MEDS ORDERED: NAPR500T PO (10:47)
[2017-03-14] MEDS ORDERED: ULTR50TA8 PO (10:47)
[2017-03-14] MEDS ORDERED: ROBA500T PO (10:47)
[2017-03-14 10:57] VITALS: BP 132/85
== END 2017-03-14 11:00 | disposition home or self-care (01) ==
LOC: M ED 08:27
DX: S46.091A Other injury of muscle(s) and tendon(s) of the rotator cuff of right shoulder, initial encounter (principal); S43.001A Unspecified subluxation of right shoulder joint, initial encounter; W19.XXXA Unspecified fall, initial encounter; Y92.9 Unspecified place or not applicable; Y93.9 Activity, unspecified; Y99.9 Unspecified external cause status; Z79.899 Other long term (current) drug therapy

== ENCOUNTER → 2017-03-21 | Outpatient (CLI) | payer MEDICARE ==
[~2017-03-21] MED LIST changes: +FENO145T; +METO1TAB7; +NAPR500T PO; +ROBA500T PO; +ULTR50TA8 PO
[2017-03-21 09:31] LABS: ANION GAP 9 MEQ/L (8-16); BLOOD UREA NITROGEN 10 MG/DL (7-18); CALCIUM LEVEL 8.7 MG/DL (8.5-10.1); CARBON DIOXIDE LEVEL 27 MEQ/L (21-32); CHLORIDE LEVEL 105 MEQ/L (98-107); CREATININE FOR GFR 0.67 MG/DL (0.55-1.02); GLOMERULAR FILTRATION RATE > 60.0 (>51); GLUCOSE, FASTING 87 MG/DL (70-105); POTASSIUM SERUM 4.1 MEQ/L (3.5-5.1); SODIUM LEVEL 141 MEQ/L (136-145)
--- NOTE | 2017-03-22 01:18 | ECGEPIP ---
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
== END ==
LOC: M LAB 08:33
PROVIDERS: ATTEND Orthopaedic Surgery
DX: Z01.818 Encounter for other preprocedural examination (principal)

== ENCOUNTER → 2017-04-22 | Outpatient (REF) | payer MEDICARE ==
[2017-04-22 14:00] LABS: BASO # 0.1 10^3/uL (0.0-0.2); BASO % 1.2 % (0.0-1.0); EOS # 0.2 10^3/uL (0.0-0.50); EOS % 3.1 % (0.0-3.0); HEMATOCRIT 36.4 % (36.0-47.0); HEMOGLOBIN 12.2 g/dl (12.0-16.0); IMMATURE GRANULOCYTE % 0.2 % (0-0); LYMPH # 1.7 10^3/uL (1.5-4.5); LYMPH % 33.1 % (24.0-44.0); MEAN CORPUSCULAR HEMOGLOBIN 29.5 pg (27.0-33.0); MEAN CORPUSCULAR HGB CONC 33.5 g/dl (32.0-36.5); MEAN CORPUSCULAR VOLUME 87.9 fl (80.0-96.0); MONO # 0.3 10^3/uL (0.0-0.8); MONO % 4.9 % (0.0-5.0); NEUTROPHILS # 2.9 10^3/uL (1.8-7.7); NEUTROPHILS % 57.5 % (36.0-66.0); PLATELET COUNT, AUTOMATED 404 10^3/uL (150-450); RED BLOOD COUNT 4.14 10^6/uL (4.00-5.40); RED CELL DISTRIBUTION WIDTH 12.6 % (11.5-14.5); WHITE BLOOD COUNT 5.1 10^3/uL (4.0-10.0)
[2017-04-22 14:28] LABS: TOTAL 25(OH) VITAMIN D 16.6 NG/ML (30.0-100.0)
[2017-04-22 14:29] LABS: ALBUMIN 3.7 GM/DL (3.2-5.2); ALBUMIN/GLOBULIN RATIO 1.16 (1.00-1.93); ALKALINE PHOSPHATASE 93 U/L (45-117); ALT/SGPT 22 U/L (12-78); ANION GAP 8 MEQ/L (8-16); AST/SGOT 19 U/L (7-37); BILIRUBIN,TOTAL 0.3 MG/DL (0.2-1.0); BLOOD UREA NITROGEN 9 MG/DL (7-18); CALCIUM LEVEL 9.5 MG/DL (8.5-10.1); CARBON DIOXIDE LEVEL 28 MEQ/L (21-32); CHLORIDE LEVEL 102 MEQ/L (98-107); CHOLESTEROL LEVEL 225 MG/DL (<200); CHOLESTEROL RISK RATIO 3.813 (<5); CREATININE FOR GFR 0.72 MG/DL (0.55-1.02); GLOMERULAR FILTRATION RATE > 60.0 (>51); GLUCOSE, FASTING 92 MG/DL (70-100); HDL CHOLESTEROL 59 MG/DL (>40); IRON (FE) 64 UG/DL (50-170); LDL CHOLESTEROL 111.2 MG/DL (<100); NON-HDL-C 166 MG/DL; POTASSIUM SERUM 4.3 MEQ/L (3.5-5.1); SODIUM LEVEL 138 MEQ/L (136-145); TOTAL PROTEIN 6.9 GM/DL (6.4-8.2); TRIGLYCERIDES LEVEL 274 MG/DL (<150)
[2017-04-22 14:50] LABS: ESTIMATED AVERAGE GLUCOSE 117 MG/DL (60-110); HEMOGLOBIN A1c 5.7 %
== END ==
LOC: M LAB REF 13:31
DX: I10 Essential (primary) hypertension (principal); E78.5 Hyperlipidemia, unspecified; E66.3 Overweight; D64.9 Anemia, unspecified; E55.9 Vitamin D deficiency, unspecified
CPT/HCPCS: 83540

== ENCOUNTER 2017-04-29 07:53 | Emergency (ER) | payer MEDICARE ==
[2017-04-29] MEDS: NORCO, ANEXSIA 5/325MG TABLET (HYDROcodone/ACETAMINOPHEN) PO (08:33)
== END 2017-04-29 09:03 | disposition home or self-care (01) ==
LOC: M ED 07:53
DX: S42.291A Other displaced fracture of upper end of right humerus, initial encounter for closed fracture (principal); S42.354A Nondisplaced comminuted fracture of shaft of humerus, right arm, initial encounter for closed fracture; Z87.81 Personal history of (healed) traumatic fracture; W00.9XXA Unspecified fall due to ice and snow, initial encounter; Y92.410 Unspecified street and highway as the place of occurrence of the external cause; Y93.9 Activity, unspecified; Z79.899 Other long term (current) drug therapy
CPT/HCPCS: 73030

== ENCOUNTER 2017-06-18 08:56 | Outpatient (RCR) | payer MEDICARE, MEDICAID | END 2017-06-28 | LOC: M PT 08:56 | DX: Z51.89 Encounter for other specified aftercare (principal); S42.291D Other displaced fracture of upper end of right humerus, subsequent encounter for fracture with routine healing; Z98.890 Other specified postprocedural states | CPT/HCPCS: 97110 ==

== ENCOUNTER 2017-07-04 08:51 | Outpatient (RCR) | payer MEDICARE | END 2017-07-28 | LOC: M PT 08:51 | DX: Z47.89 Encounter for other orthopedic aftercare (principal); S42.291D Other displaced fracture of upper end of right humerus, subsequent encounter for fracture with routine healing; M25.311 Other instability, right shoulder | CPT/HCPCS: 97110 ==

== ENCOUNTER 2017-07-29 07:45 | Outpatient (RCR) | payer MEDICARE | END 2017-08-28 | LOC: M PT 07-31 07:30 | DX: Z47.89 Encounter for other orthopedic aftercare (principal); S42.291A Other displaced fracture of upper end of right humerus, initial encounter for closed fracture; M25.311 Other instability, right shoulder | CPT/HCPCS: 97110 ==

== ENCOUNTER 2017-09-02 08:52 | Outpatient (RCR) | payer MEDICARE | END 2017-09-27 | LOC: M PT 08:52 | DX: Z47.89 Encounter for other orthopedic aftercare (principal); S42.291A Other displaced fracture of upper end of right humerus, initial encounter for closed fracture; M25.311 Other instability, right shoulder | CPT/HCPCS: 97110 ==

== ENCOUNTER 2017-09-30 09:54 | Outpatient (RCR) | payer MEDICARE | END 2017-10-28 | LOC: M PT 09:54 | DX: Z51.89 Encounter for other specified aftercare (principal); S42.291D Other displaced fracture of upper end of right humerus, subsequent encounter for fracture with routine healing; M25.311 Other instability, right shoulder; X58.XXXD Exposure to other specified factors, subsequent encounter; Y92.9 Unspecified place or not applicable; Y93.9 Activity, unspecified; Y99.9 Unspecified external cause status; Z79.899 Other long term (current) drug therapy | CPT/HCPCS: 97110 ==

== ENCOUNTER → 2018-03-16 | Outpatient (CLI) | payer MEDICARE ==
[~2018-03-16] MED LIST changes: -FENO145T; +FENO145T13; +NAPR-49 PO; -NAPR500T PO; +NORCOTAB PO
[2018-03-16 08:37] LABS: BASO # 0.1 10^3/uL (0.0-0.2); BASO % 0.9 % (0.0-1.0); EOS # 0.3 10^3/uL (0.0-0.50); EOS % 3.6 % (0.0-3.0); HEMATOCRIT 39.6 % (36.0-47.0); HEMOGLOBIN 13.2 g/dl (12.0-15.5); LYMPH # 1.9 10^3/uL (1.5-4.5); LYMPH % 27.6 % (24.0-44.0); MEAN CORPUSCULAR HEMOGLOBIN 28.7 pg (27.0-33.0); MEAN CORPUSCULAR HGB CONC 33.3 g/dl (32.0-36.5); MEAN CORPUSCULAR VOLUME 86.1 fl (80.0-96.0); MONO # 0.5 10^3/uL (0.0-0.8); MONO % 7.2 % (0.0-5.0); NEUTROPHILS # 4.1 10^3/uL (1.8-7.7); NEUTROPHILS % 60.4 % (36.0-66.0); PLATELET COUNT, AUTOMATED 318 10^3/uL (150-450); WHITE BLOOD COUNT 6.9 10^3/uL (4.0-10.0)
[2018-03-16 09:25] LABS: ALBUMIN 3.7 GM/DL (3.2-5.2); ALT/SGPT 22 U/L (12-78); BILIRUBIN,TOTAL 0.3 MG/DL (0.2-1.0); BLOOD UREA NITROGEN 11 MG/DL (7-18); CALCIUM LEVEL 9.8 MG/DL (8.5-10.1); CARBON DIOXIDE LEVEL 28 MEQ/L (21-32); CHLORIDE LEVEL 105 MEQ/L (98-107); CHOLESTEROL LEVEL 236 MG/DL (<200); CHOLESTEROL RISK RATIO 3.746 (<5); CREATININE FOR GFR 0.78 MG/DL (0.55-1.30); GLOMERULAR FILTRATION RATE > 60.0 (>51); GLUCOSE, FASTING 101 MG/DL (70-100); HDL CHOLESTEROL 63 MG/DL (>40); IRON (FE) 87 UG/DL (50-170); LDL CHOLESTEROL 134 MG/DL (<100); NON-HDL-C 173 MG/DL; POTASSIUM SERUM 4.4 MEQ/L (3.5-5.1); SODIUM LEVEL 140 MEQ/L (136-145); TOTAL PROTEIN 6.8 GM/DL (6.4-8.2); TRIGLYCERIDES LEVEL 194 MG/DL (<150)
== END ==
LOC: M LAB 07:47
PROVIDERS: ATTEND Nurse Practitioner Adult Health
DX: E78.5 Hyperlipidemia, unspecified (principal); D64.9 Anemia, unspecified; I10 Essential (primary) hypertension

== ENCOUNTER → 2018-10-19 | Outpatient (REF) | payer MEDICARE ==
[~2018-10-19] MED LIST changes: +HYDR-3715 PO; -NAPR-49 PO; +NAPR-837 PO; -NORCOTAB PO
[2018-10-19 13:08] LABS: BASO # 0.1 10^3/uL (0.0-0.2); BASO % 0.9 % (0.0-1.0); EOS # 0.5 10^3/uL (0.0-0.50); EOS % 6.6 % (0.0-3.0); HEMATOCRIT 41.3 % (36.0-47.0); HEMOGLOBIN 13.6 g/dl (12.0-15.5); LYMPH % 25.9 % (24.0-44.0); MEAN CORPUSCULAR HEMOGLOBIN 28.3 pg (27.0-33.0); MEAN CORPUSCULAR HGB CONC 32.9 g/dl (32.0-36.5); MEAN CORPUSCULAR VOLUME 85.9 fl (80.0-96.0); MONO # 0.4 10^3/uL (0.0-0.8); MONO % 5.6 % (0.0-5.0); NEUTROPHILS # 4.8 10^3/uL (1.8-7.7); NEUTROPHILS % 60.5 % (36.0-66.0); PLATELET COUNT, AUTOMATED 332 10^3/uL (150-450); RED BLOOD COUNT 4.81 10^6/uL (4.00-5.40); WHITE BLOOD COUNT 7.9 10^3/uL (4.0-10.0)
[2018-10-19 13:20] LABS: ALBUMIN 3.5 GM/DL (3.2-5.2); ALT/SGPT 21 U/L (12-78); BILIRUBIN,TOTAL 0.3 MG/DL (0.2-1.0); BLOOD UREA NITROGEN 9 MG/DL (7-18); CALCIUM LEVEL 9.5 MG/DL (8.5-10.1); CARBON DIOXIDE LEVEL 28 MEQ/L (21-32); CHLORIDE LEVEL 105 MEQ/L (98-107); CHOLESTEROL LEVEL 159 MG/DL (<200); CHOLESTEROL RISK RATIO 2.092 (<5); CREATININE FOR GFR 0.87 MG/DL (0.55-1.30); FREE T4 0.91 NG/DL (0.76-1.46); GLOMERULAR FILTRATION RATE > 60.0 (>51); GLUCOSE, FASTING 102 MG/DL (70-100); HDL CHOLESTEROL 76 MG/DL (>40); LDL CHOLESTEROL 60 MG/DL (<100); NON-HDL-C 83 MG/DL; POTASSIUM SERUM 4.4 MEQ/L (3.5-5.1); SODIUM LEVEL 138 MEQ/L (136-145); TOTAL PROTEIN 6.6 GM/DL (6.4-8.2); TRIGLYCERIDES LEVEL 117 MG/DL (<150)
[2018-10-19 13:22] LABS: TOTAL 25(OH) VITAMIN D 15.2 NG/ML (30.0-100.0)
[2018-10-19 13:58] LABS: HEMOGLOBIN A1c 6.1 %
[2018-10-21 00:06] LABS: Lyme Disease IgG Ab 18 kDa Ban Present (.); Lyme Disease IgG Ab 23 kDa Ban Absent (.); Lyme Disease IgG Ab 28 kDa Ban Absent (.); Lyme Disease IgG Ab 30 kDa Ban Absent (.); Lyme Disease IgG Ab 39 kDa Ban Absent (.); Lyme Disease IgG Ab 41 kDa Ban Absent (.); Lyme Disease IgG Ab 45 kDa Ban Absent (.); Lyme Disease IgG Ab 58 kDa Ban Absent (.); Lyme Disease IgG Ab 66 kDa Ban Absent (.); Lyme Disease IgG Ab 93 kDa Ban Absent (.); Lyme Disease IgG West Blot Int Negative (.); Lyme Disease IgG/IgM Antibodie <0.91 ISR (0.00-0.90); Lyme Disease IgM Ab 23 kDa Ban Present (.); Lyme Disease IgM Ab 39 kDa Ban Absent (.); Lyme Disease IgM Ab 41 kDa Ban Absent (.); Lyme Disease IgM Ab Quantitati 1.63 index (0.00-0.79); Lyme Disease IgM West Blot Int Negative (.)
== END ==
LOC: M LAB REF 12:32
PROVIDERS: ATTEND Family Medicine
DX: Z13.228 Encounter for screening for other metabolic disorders (principal); E07.9 Disorder of thyroid, unspecified; E78.00 Pure hypercholesterolemia, unspecified

== ENCOUNTER → 2019-01-25 | Outpatient (REF) | payer MEDICARE ==
[2019-01-25 13:59] LABS: ALBUMIN 3.7 GM/DL (3.2-5.2); ALT/SGPT 38 U/L (12-78); BILIRUBIN,TOTAL 0.4 MG/DL (0.2-1.0); BLOOD UREA NITROGEN 8 MG/DL (7-18); CALCIUM LEVEL 9.6 MG/DL (8.5-10.1); CARBON DIOXIDE LEVEL 23 MEQ/L (21-32); CHLORIDE LEVEL 104 MEQ/L (98-107); CHOLESTEROL LEVEL 154 MG/DL (<200); CHOLESTEROL RISK RATIO 2.406 (<5); CREATININE FOR GFR 0.84 MG/DL (0.55-1.30); GLOMERULAR FILTRATION RATE > 60.0 (>51); GLUCOSE, FASTING 108 MG/DL (70-100); HDL CHOLESTEROL 64 MG/DL (>40); LDL CHOLESTEROL 63 MG/DL (<100); NON-HDL-C 90 MG/DL; SODIUM LEVEL 138 MEQ/L (136-145); TOTAL PROTEIN 6.8 GM/DL (6.4-8.2); TRIGLYCERIDES LEVEL 136 MG/DL (<150)
[2019-01-25 14:13] LABS: HEMOGLOBIN A1c 6.2 %
== END ==
LOC: M LAB REF 12:47
PROVIDERS: ATTEND Family Medicine
DX: Z13.228 Encounter for screening for other metabolic disorders (principal); R73.03 Prediabetes; E07.9 Disorder of thyroid, unspecified; E78.00 Pure hypercholesterolemia, unspecified

== ENCOUNTER → 2019-05-31 | Outpatient (REF) | payer MEDICARE ==
[~2019-05-31] MED LIST changes: -FENO145T13; +FENO145T7
[2019-05-31 13:46] LABS: AMORPHOUS SEDIMENT SMALL (NEGATIVE); APPEARANCE, URINE TURBID (CLEAR); BACTERIA, URINE AUTO NEGATIVE (NEGATIVE); BILIRUBIN, URINE AUTO NEGATIVE (NEGATIVE); BLOOD, URINE BLOOD NEGATIVE (NEGATIVE); CALCIUM OXALATE CRYSTALS SMALL; COLOR, URINE YELLOW (YELLOW); GLUCOSE, URINE (UA) AUTO NEGATIVE (NEGATIVE); KETONE, URINE AUTO NEGATIVE (NEGATIVE); LEUKOCYTE ESTERASE, URINE AUTO 1+ (NEGATIVE); MUCUS, URINE MODERATE (NEGATIVE); NITRITE, URINE AUTO NEGATIVE (NEGATIVE); PROTEIN, URINE AUTO NEGATIVE (NEGATIVE); RBC, URINE AUTO 2 /HPF (0-3); SPECIFIC GRAVITY URINE AUTO 1.021 (1.002-1.035); SQUAMOUS EPITHELIAL CELL UR AU 6 /HPF (0-6); UROBILINOGEN, URINE AUTO 0.2 mg/dL (0.0-2.0); WBC, URINE AUTO 12 /HPF (0-3)
[2019-05-31 14:19] LABS: BASO % 0.6 % (0.0-1.0); EOS # 0.1 10^3/uL (0.0-0.5); EOS % 1.8 % (0.0-3.0); HEMATOCRIT 41.8 % (36.0-47.0); HEMOGLOBIN 13.3 g/dl (12.0-15.5); LYMPH # 1.8 10^3/uL (1.5-5.0); LYMPH % 27.2 % (24.0-44.0); MEAN CORPUSCULAR HEMOGLOBIN 26.7 pg (27.0-33.0); MEAN CORPUSCULAR HGB CONC 31.8 g/dl (32.0-36.5); MEAN CORPUSCULAR VOLUME 83.8 fl (80.0-96.0); MONO # 0.5 10^3/uL (0.0-0.8); MONO % 6.9 % (0.0-5.0); NEUTROPHILS # 4.2 10^3/uL (1.5-8.5); NEUTROPHILS % 63.3 % (36.0-66.0); PLATELET COUNT, AUTOMATED 360 10^3/uL (150-450); RED BLOOD COUNT 4.99 10^6/uL (4.00-5.40); WHITE BLOOD COUNT 6.7 10^3/uL (4.0-10.0)
[2019-05-31 14:41] LABS: HEMOGLOBIN A1c 6.1 %
[2019-05-31 14:55] LABS: ALBUMIN 3.9 GM/DL (3.2-5.2); ALT/SGPT 32 U/L (12-78); BILIRUBIN,TOTAL 0.4 MG/DL (0.2-1.0); BLOOD UREA NITROGEN 10 MG/DL (7-18); CALCIUM LEVEL 10.1 MG/DL (8.5-10.1); CARBON DIOXIDE LEVEL 24 MEQ/L (21-32); CHLORIDE LEVEL 107 MEQ/L (98-107); CHOLESTEROL LEVEL 163 MG/DL (<200); CHOLESTEROL RISK RATIO 2.362 (<5); CREATININE FOR GFR 0.91 MG/DL (0.55-1.30); FREE T4 1.23 NG/DL (0.76-1.46); GLOMERULAR FILTRATION RATE > 60.0 (>51); GLUCOSE, FASTING 95 MG/DL (70-100); HDL CHOLESTEROL 69 MG/DL (>40); LDL CHOLESTEROL 74 MG/DL (<100); NON-HDL-C 94 MG/DL; POTASSIUM SERUM 4.8 MEQ/L (3.5-5.1); SODIUM LEVEL 139 MEQ/L (136-145); TOTAL PROTEIN 6.9 GM/DL (6.4-8.2); TRIGLYCERIDES LEVEL 98 MG/DL (<150)
== END ==
LOC: M LAB REF 13:07
PROVIDERS: ATTEND Nurse Practitioner Family
DX: E55.9 Vitamin D deficiency, unspecified (principal); I10 Essential (primary) hypertension; R73.03 Prediabetes; R19.7 Diarrhea, unspecified; Z72.0 Tobacco use; D64.9 Anemia, unspecified; F10.11 Alcohol abuse, in remission

== ENCOUNTER → 2019-10-25 | Outpatient (REF) | payer MEDICARE ==
[~2019-10-25] MED LIST changes: +ARIP1TAB6 PO; +ESCI10TA2; +ROSU40TA4
== END ==
LOC: M LAB REF 09:36
PROVIDERS: ATTEND Nurse Practitioner Family
DX: R19.7 Diarrhea, unspecified (principal)

== ENCOUNTER → 2019-12-07 | Outpatient (REF) | payer MEDICARE | LOC: M LAB REF 07:00 | PROVIDERS: ATTEND Internal Medicine Gastroenterology | DX: R19.7 Diarrhea, unspecified (principal); K22.70 Barrett's esophagus without dysplasia ==

== ENCOUNTER → 2019-12-10 | Outpatient (CLI) | payer MEDICARE, MEDICAID | LOC: M LABSMTC 11:55 | PROVIDERS: ATTEND Anesthesiology | DX: Z11.59 Encounter for screening for other viral diseases (principal) | CPT/HCPCS: C9803; U0003 ==

== ENCOUNTER 2019-12-15 09:01 | Day surgery (SDC) | payer MEDICARE, MEDICAID ==
[~2019-12-15] VITALS: Ht 172.7 cm; Wt 80.3 kg
[~2019-12-15 09:01] MED LIST changes: +NS 1,000 ML IV ONE
[2019-12-15] MEDS ORDERED: fentaNYL 100 MCG/2 ML INJECTION (J3010) As Ordered ONE (10:06)
[2019-12-15] MEDS ORDERED: LIDOCAINE 2% 100MG/5ML SDV (FOR ANES.) As Ordered ONE (10:06)
[2019-12-15] MEDS ORDERED: propofoL 200 MG/20 ML VIAL As Ordered ONE (10:06)
--- NOTE | 2019-12-15 10:47 | ROOR ---
Patient Name: Hiwot Doe Procedure Date: 12/15/2019 10:27 AM Date of : 1960 Age: 59 Room: [facility] Gender: Female Note Status: Finalized Procedure: Upper Endoscopy + Biopsies Indications: Heartburn, Exclusion of Webb's esophagus Providers: Lorenzo Hernandez MD Referring MD: Cee ORTIZ NP Requesting Provider: Medicines: Monitored Anesthesia Care Complications: No immediate complications. Procedure: Pre-Anesthesia Assessment: - The heart rate, respiratory rate, oxygen saturations, blood pressure, adequacy of pulmonary ventilation, and response to care were monitored throughout the procedure. The Endoscope was introduced through the mouth, and advanced to the second part of duodenum. The upper GI endoscopy was accomplished without difficulty. The patient tolerated the procedure well. Findings: The Z-line was irregular and was found 30 cm from the incisors. Multiple biopsies were obtained with cold forceps for evaluation to rule out Webb's Esophagus randomly at the gastroesophageal junction. A large hiatal hernia was present. No other significant abnormalities were identified in a careful examination of the stomach. The exam of the duodenum was otherwise normal. Impression: - Z-line irregular, 30 cm from the incisors. - Large hiatal hernia. - Multiple biopsies were obtained at the gastroesophageal junction. - The examination was otherwise normal. Recommendation: - Patient has a contact number available for emergencies. The signs and symptoms of potential delayed complications were discussed with the patient. Return to normal activities tomorrow. Written discharge instructions were provided to the patient. - Resume previous diet. - Discharge patient to home. - Follow an antireflux regimen. - Continue present medications. - Await pathology results. - Telephone GI clinic for pathology results in 1 week. - Repeat upper endoscopy for surveillance based on pathology results. - The findings and recommendations were discussed with the patient. Lorenzo Hernandez MD Lorenzo Hernandez MD 12/15/2019 10:47:35 AM Electronically signed by Lorenzo Henrandez MD Number of Addenda: 0 Note Initiated On: 12/15/2019 10:27 AM Estimated Blood Loss: Estimated blood loss: none.
--- NOTE | 2019-12-15 11:08 | ROOR ---
Patient Name: Hiwot Doe Procedure Date: 12/15/2019 10:28 AM Date of : 1960 Age: 59 Room: [facility] Gender: Female Note Status: Finalized Procedure: Total Colonoscopy to Cecum + Bx. To r/o Microscopic Colitis Indications: Clinically significant diarrhea of unexplained origin Providers: Lorenzo Hernandez MD Referring MD: Cee ORTIZ NP Requesting Provider: Medicines: Monitored Anesthesia Care Complications: No immediate complications. Procedure: Pre-Anesthesia Assessment: - The heart rate, respiratory rate, oxygen saturations, blood pressure, adequacy of pulmonary ventilation, and response to care were monitored throughout the procedure. The Colonoscope was introduced through the anus and advanced to the cecum, identified by appendiceal orifice and ileocecal valve. The colonoscopy was performed without difficulty. The patient tolerated the procedure well. The quality of the bowel preparation was excellent. Findings: The perianal and digital rectal examinations were normal. Non-bleeding internal hemorrhoids were found during retroflexion. The hemorrhoids were small and Grade I (internal hemorrhoids that do not prolapse). Multiple small and large-mouthed diverticula were found in the recto-sigmoid colon, sigmoid colon and descending colon. The exam was otherwise without abnormality on direct and retroflexion views. Biopsies for histology were taken with a cold forceps from the cecum, ascending colon, transverse colon, descending colon and rectosigmoid colon for evaluation of microscopic colitis. Impression: - Non-bleeding internal hemorrhoids. - Diverticulosis in the recto-sigmoid colon, in the sigmoid colon and in the descending colon. - The examination was otherwise normal on direct and retroflexion views. - Biopsies were taken with a cold forceps from the cecum, ascending colon, transverse colon, descending colon and rectosigmoid colon for evaluation of microscopic colitis. - The exam was otherwise normal to the cecum. Recommendation: - Patient has a contact number available for emergencies. The signs and symptoms of potential delayed complications were discussed with the patient. Return to normal activities tomorrow. Written discharge instructions were provided to the patient. - High fiber diet. - Discharge patient to home. - Await pathology results. - Telephone GI clinic for pathology results in 1 week. - Repeat colonoscopy in 10 years for screening purposes. Lorenzo Hernandez MD Lorenzo Hernandez MD 12/15/2019 11:08:16 AM Electronically signed by Lorenzo Hernandez MD Number of Addenda: 0 Note Initiated On: 12/15/2019 10:28 AM Estimated Blood Loss: Estimated blood loss: none.
[2019-12-15 11:39] VITALS: BP 164/93
== END 2019-12-15 11:41 | disposition home or self-care (01) ==
LOC: M OPP 09:01
PROVIDERS: ATTEND Internal Medicine Gastroenterology
DX: K57.30 Diverticulosis of large intestine without perforation or abscess without bleeding (principal); K64.0 First degree hemorrhoids; R19.7 Diarrhea, unspecified; K22.8 Other specified diseases of esophagus; K44.9 Diaphragmatic hernia without obstruction or gangrene; R12 Heartburn; I10 Essential (primary) hypertension; F17.210 Nicotine dependence, cigarettes, uncomplicated; Z79.899 Other long term (current) drug therapy; Z88.8 Allergy status to other drugs, medicaments and biological substances
CPT/HCPCS: 43239; 45380; 88305; J3010

== ENCOUNTER → 2020-02-14 | Outpatient (REF) | payer MEDICARE ==
[~2020-02-14] MED LIST changes: -NS 1,000 ML IV ONE
[2020-02-14 13:38] LABS: BASO # 0.1 10^3/uL (0.0-0.2); BASO % 0.7 % (0.0-1.0); EOS # 0.1 10^3/uL (0.0-0.5); EOS % 1.6 % (0.0-3.0); HEMATOCRIT 42.7 % (36.0-47.0); HEMOGLOBIN 13.6 g/dl (12.0-15.5); LYMPH % 26.9 % (24.0-44.0); MEAN CORPUSCULAR HEMOGLOBIN 27.3 pg (27.0-33.0); MEAN CORPUSCULAR HGB CONC 31.9 g/dl (32.0-36.5); MEAN CORPUSCULAR VOLUME 85.6 fl (80.0-96.0); MONO # 0.5 10^3/uL (0.0-0.8); MONO % 6.2 % (0.0-5.0); NEUTROPHILS # 4.9 10^3/uL (1.5-8.5); NEUTROPHILS % 64.3 % (36.0-66.0); PLATELET COUNT, AUTOMATED 336 10^3/uL (150-450); RED BLOOD COUNT 4.99 10^6/uL (4.00-5.40); WHITE BLOOD COUNT 7.5 10^3/uL (4.0-10.0)
[2020-02-14 13:50] LABS: ALT/SGPT 22 U/L (12-78); BILIRUBIN,TOTAL 0.4 MG/DL (0.2-1.0); BLOOD UREA NITROGEN 12 MG/DL (7-18); CALCIUM LEVEL 10.2 MG/DL (8.5-10.1); CARBON DIOXIDE LEVEL 27 MEQ/L (21-32); CHLORIDE LEVEL 105 MEQ/L (98-107); CHOLESTEROL LEVEL 170 MG/DL (<200); CHOLESTEROL RISK RATIO 2.125 (<5); CREATININE FOR GFR 0.86 MG/DL (0.55-1.30); FREE T4 1.22 NG/DL (0.76-1.46); GLOMERULAR FILTRATION RATE > 60.0 (>51); GLUCOSE, FASTING 96 MG/DL (70-100); HDL CHOLESTEROL 80 MG/DL (>40); LDL CHOLESTEROL 73 MG/DL (<100); NON-HDL-C 90 MG/DL; POTASSIUM SERUM 4.2 MEQ/L (3.5-5.1); SODIUM LEVEL 140 MEQ/L (136-145); TOTAL PROTEIN 7.3 GM/DL (6.4-8.2); TRIGLYCERIDES LEVEL 83 MG/DL (<150)
[2020-02-14 13:52] LABS: TOTAL 25(OH) VITAMIN D 16.8 NG/ML (30.0-100.0)
[2020-02-14 14:30] LABS: HEMOGLOBIN A1c 5.7 %
== END ==
LOC: M LAB REF 12:16
PROVIDERS: ATTEND Nurse Practitioner Family
DX: Z13.9 Encounter for screening, unspecified (principal); R19.7 Diarrhea, unspecified; E55.9 Vitamin D deficiency, unspecified; I10 Essential (primary) hypertension; R73.03 Prediabetes; D64.9 Anemia, unspecified; E78.5 Hyperlipidemia, unspecified

== ENCOUNTER → 2020-06-01 | Outpatient (REF) | payer MEDICARE ==
[~2020-06-01] MED LIST changes: +ESCI10TA16; -ESCI10TA2
[2020-06-01 12:06] LABS: BASO % 0.7 % (0.0-1.0); EOS # 0.1 10^3/uL (0.0-0.5); HEMATOCRIT 41.1 % (36.0-47.0); LYMPH # 1.4 10^3/uL (1.5-5.0); LYMPH % 24.1 % (24.0-44.0); MEAN CORPUSCULAR HEMOGLOBIN 27.5 pg (27.0-33.0); MEAN CORPUSCULAR HGB CONC 31.6 g/dl (32.0-36.5); MEAN CORPUSCULAR VOLUME 87.1 fl (80.0-96.0); MONO # 0.5 10^3/uL (0.0-0.8); MONO % 7.8 % (2.0-8.0); NEUTROPHILS # 3.8 10^3/uL (1.5-8.5); NEUTROPHILS % 65.2 % (36.0-66.0); PLATELET COUNT, AUTOMATED 284 10^3/uL (150-450); RED BLOOD COUNT 4.72 10^6/uL (4.00-5.40); WHITE BLOOD COUNT 5.9 10^3/uL (4.0-10.0)
[2020-06-01 13:00] LABS: ALBUMIN 3.9 GM/DL (3.2-5.2); ALT/SGPT 26 U/L (12-78); BILIRUBIN,TOTAL 0.5 MG/DL (0.2-1.0); BLOOD UREA NITROGEN 7 MG/DL (7-18); CALCIUM LEVEL 9.9 MG/DL (8.5-10.1); CARBON DIOXIDE LEVEL 27 MEQ/L (21-32); CHLORIDE LEVEL 103 MEQ/L (98-107); CHOLESTEROL LEVEL 178 MG/DL (<200); CHOLESTEROL RISK RATIO 2.069 (<5); CREATININE FOR GFR 0.83 MG/DL (0.55-1.30); FREE T4 1.14 NG/DL (0.76-1.46); GLOMERULAR FILTRATION RATE > 60.0 (>51); GLUCOSE, FASTING 95 MG/DL (70-100); HDL CHOLESTEROL 86 MG/DL (>40); LDL CHOLESTEROL 80 MG/DL (<100); NON-HDL-C 92 MG/DL; POTASSIUM SERUM 4.6 MEQ/L (3.5-5.1); SODIUM LEVEL 136 MEQ/L (136-145); THYROID STIMULATING HORMONE 0.637 uIU/ML (0.358-3.740); TOTAL PROTEIN 6.6 GM/DL (6.4-8.2); TRIGLYCERIDES LEVEL 61 MG/DL (<150)
[2020-06-01 15:30] LABS: HEMOGLOBIN A1c 5.6 %
== END ==
LOC: M LAB REF 11:35
PROVIDERS: ATTEND Nurse Practitioner Family
DX: I10 Essential (primary) hypertension (principal); F17.200 Nicotine dependence, unspecified, uncomplicated; E78.5 Hyperlipidemia, unspecified; E56.9 Vitamin deficiency, unspecified

== ENCOUNTER → 2020-09-13 | Outpatient (REF) | payer MEDICARE ==
[2020-09-13 17:23] LABS: ALT/SGPT 29 U/L (12-78); BILIRUBIN,TOTAL 0.2 MG/DL (0.2-1.0); BLOOD UREA NITROGEN 6 MG/DL (7-18); CARBON DIOXIDE LEVEL 27 MEQ/L (21-32); CHLORIDE LEVEL 106 MEQ/L (98-107); CHOLESTEROL LEVEL 174 MG/DL (<200); CHOLESTEROL RISK RATIO 2.202 (<5); CREATININE FOR GFR 0.64 MG/DL (0.55-1.30); GLOMERULAR FILTRATION RATE > 60.0 (>51); GLUCOSE, FASTING 82 MG/DL (70-100); HDL CHOLESTEROL 79 MG/DL (>40); LDL CHOLESTEROL 80 MG/DL (<100); NON-HDL-C 95 MG/DL; POTASSIUM SERUM 4.7 MEQ/L (3.5-5.1); SODIUM LEVEL 138 MEQ/L (136-145); TOTAL PROTEIN 7.1 GM/DL (6.4-8.2); TRIGLYCERIDES LEVEL 73 MG/DL (<150)
[2020-09-13 17:27] LABS: BASO # 0.1 10^3/uL (0.0-0.2); BASO % 1.2 % (0.0-1.0); EOS # 0.1 10^3/uL (0.0-0.5); EOS % 1.7 % (0.0-3.0); HEMATOCRIT 43.8 % (36.0-47.0); HEMOGLOBIN 14.2 g/dl (12.0-15.5); LYMPH # 1.4 10^3/uL (1.5-5.0); LYMPH % 34.7 % (24.0-44.0); MEAN CORPUSCULAR HEMOGLOBIN 27.7 pg (27.0-33.0); MEAN CORPUSCULAR HGB CONC 32.4 g/dl (32.0-36.5); MEAN CORPUSCULAR VOLUME 85.5 fl (80.0-96.0); MONO # 0.5 10^3/uL (0.0-0.8); MONO % 10.9 % (2.0-8.0); NEUTROPHILS # 2.1 10^3/uL (1.5-8.5); PLATELET COUNT, AUTOMATED 317 10^3/uL (150-450); RED BLOOD COUNT 5.12 10^6/uL (4.00-5.40); WHITE BLOOD COUNT 4.1 10^3/uL (4.0-10.0)
[2020-09-13 18:00] LABS: HEPATITIS C VIRUS ABY INDEX < 0.0 INDEX (<0.8); HIV 1&2 SCREEN CENTAUR NEGATIVE (NEGATIVE)
== END ==
LOC: M LAB REF 16:20
PROVIDERS: ATTEND Nurse Practitioner Family
DX: I10 Essential (primary) hypertension (principal); E78.5 Hyperlipidemia, unspecified

== ENCOUNTER → 2022-04-03 | Outpatient (REF) | payer MEDICARE ==
[2022-04-03 13:08] LABS: BASO % 0.5 % (0.0-1.0); EOS % 0.5 % (0.0-3.0); HEMATOCRIT 40.1 % (36.0-47.0); HEMOGLOBIN 13.3 g/dl (12.0-15.5); LYMPH # 1.3 10^3/uL (1.5-5.0); MEAN CORPUSCULAR HGB CONC 33.2 g/dl (32.0-36.5); MEAN CORPUSCULAR VOLUME 87.4 fl (80.0-96.0); MONO # 0.5 10^3/uL (0.0-0.8); NEUTROPHILS # 4.4 10^3/uL (1.5-8.5); NEUTROPHILS % 69.7 % (36.0-66.0); PLATELET COUNT, AUTOMATED 295 10^3/uL (150-450); RED BLOOD COUNT 4.59 10^6/uL (4.00-5.40); WHITE BLOOD COUNT 6.2 10^3/uL (4.0-10.0)
[2022-04-03 13:25] LABS: HEMOGLOBIN A1c 5.3 % (4.0-6.0)
[2022-04-03 13:44] LABS: ALBUMIN 3.5 G/DL (3.2-5.2); ALKALINE PHOSPHATASE 78 U/L (46-116); ALT/SGPT 18 U/L (7.0-40); AST/SGOT 23 U/L (<34); BILIRUBIN,TOTAL 0.3 MG/DL (0.3-1.2); BLOOD UREA NITROGEN < 5 MG/DL (9-23); CALCIUM LEVEL 9.5 MG/DL (8.3-10.6); CARBON DIOXIDE LEVEL 22 MMOL/L (20-31); CHLORIDE LEVEL 99 MMOL/L (98-107); CHOLESTEROL LEVEL 171 MG/DL (<200); CHOLESTEROL RISK RATIO 2.03 (<5); CREATININE FOR GFR 0.58 MG/DL (0.55-1.30); GLOMERULAR FILTRATION RATE > 60.0 (>45); GLUCOSE, FASTING 75 MG/DL (74-106); HDL CHOLESTEROL 83.9 MG/DL (>40); LDL CHOLESTEROL 64.1 MG/DL (<100); NON-HDL-C 87 MG/DL; POTASSIUM SERUM 4.7 MMOL/L (3.5-5.1); SODIUM LEVEL 135 MMOL/L (136-145); TOTAL PROTEIN 6.3 G/DL (5.7-8.2); TRIGLYCERIDES LEVEL 115 MG/DL (<150)
== END ==
LOC: M LAB REF 12:34
PROVIDERS: ATTEND Nurse Practitioner Family
DX: Z13.228 Encounter for screening for other metabolic disorders (principal); Z79.899 Other long term (current) drug therapy

== ENCOUNTER → 2022-07-18 | Outpatient (CLI) | payer MEDICARE | LOC: M WUC 10:10 | PROVIDERS: ATTEND Student in an Organized Health Care Education/Training Program | DX: M25.571 Pain in right ankle and joints of right foot (principal) ==

== ENCOUNTER → 2022-08-13 | Outpatient (REF) | payer MEDICARE ==
[2022-08-13 14:25] LABS: CHOLESTEROL RISK RATIO 1.8 (<5); HDL CHOLESTEROL 85.1 MG/DL (>40); LDL CHOLESTEROL 51.7 MG/DL (<100); NON-HDL-C 68.9 MG/DL
== END ==
LOC: M LAB REF 12:41
PROVIDERS: ATTEND Nurse Practitioner Family
DX: E78.5 Hyperlipidemia, unspecified (principal)

== ENCOUNTER → 2022-11-04 | Outpatient (REF) | payer MEDICARE ==
[2022-11-04 12:21] LABS: BASO % 0.4 % (0.0-1.0); EOS % 0.3 % (0.0-3.0); HEMATOCRIT 42.1 % (36.0-47.0); HEMOGLOBIN 13.8 g/dl (12.0-15.5); LYMPH # 1.7 10^3/uL (1.5-5.0); LYMPH % 23.9 % (24.0-44.0); MEAN CORPUSCULAR HEMOGLOBIN 28.4 pg (27.0-33.0); MEAN CORPUSCULAR HGB CONC 32.8 g/dl (32.0-36.5); MEAN CORPUSCULAR VOLUME 86.6 fl (80.0-96.0); MONO # 0.5 10^3/uL (0.0-0.8); MONO % 7.5 % (2.0-8.0); NEUTROPHILS # 4.9 10^3/uL (1.5-8.5); NEUTROPHILS % 67.6 % (36.0-66.0); PLATELET COUNT, AUTOMATED 315 10^3/uL (150-450); RED BLOOD COUNT 4.86 10^6/uL (4.00-5.40); WHITE BLOOD COUNT 7.2 10^3/uL (4.0-10.0)
[2022-11-04 12:49] LABS: ALBUMIN 3.6 G/DL (3.2-5.2); ALKALINE PHOSPHATASE 115 U/L (46-116); ALT/SGPT 13 U/L (7.0-40); AST/SGOT 18 U/L (<34); BILIRUBIN,TOTAL 0.4 MG/DL (0.3-1.2); BLOOD UREA NITROGEN 6 MG/DL (9-23); CALCIUM LEVEL 10.1 MG/DL (8.3-10.6); CARBON DIOXIDE LEVEL 25 MMOL/L (20-31); CHLORIDE LEVEL 98 MMOL/L (98-107); GLOMERULAR FILTRATION RATE > 60.0 (>45); GLUCOSE, FASTING 87 MG/DL (74-106); SODIUM LEVEL 133 MMOL/L (136-145); TOTAL PROTEIN 6.8 G/DL (5.7-8.2)
[2022-11-04 12:50] LABS: THYROID STIMULATING HORMONE 0.979 uIU/ML (0.55-4.78)
== END ==
LOC: M LAB REF 11:35
PROVIDERS: ATTEND Pediatrics
DX: E78.2 Mixed hyperlipidemia (principal); I10 Essential (primary) hypertension; R73.03 Prediabetes; F10.10 Alcohol abuse, uncomplicated

== ENCOUNTER → 2023-07-23 | Outpatient (REF) | payer MEDICARE ==
[2023-07-23 13:26] LABS: BASO % 0.5 % (0.0-1.0); EOS # 0.1 10^3/uL (0.0-0.5); EOS % 0.9 % (0.0-3.0); HEMOGLOBIN 14.4 g/dl (12.0-15.5); LYMPH # 1.7 10^3/uL (1.5-5.0); LYMPH % 29.2 % (24.0-44.0); MEAN CORPUSCULAR HEMOGLOBIN 28.3 pg (27.0-33.0); MEAN CORPUSCULAR HGB CONC 33.5 g/dl (32.0-36.5); MEAN CORPUSCULAR VOLUME 84.6 fl (80.0-96.0); MONO # 0.5 10^3/uL (0.0-0.8); MONO % 8.5 % (2.0-8.0); NEUTROPHILS # 3.5 10^3/uL (1.5-8.5); NEUTROPHILS % 60.6 % (36.0-66.0); PLATELET COUNT, AUTOMATED 359 10^3/uL (150-450); RED BLOOD COUNT 5.08 10^6/uL (4.00-5.40); WHITE BLOOD COUNT 5.8 10^3/uL (4.0-10.0)
[2023-07-23 13:43] LABS: HEMOGLOBIN A1c 5.3 % (4.0-6.0)
[2023-07-23 14:13] LABS: ALBUMIN 3.7 G/DL (3.2-5.2); ALKALINE PHOSPHATASE 88 U/L (46-116); ALT/SGPT 21 U/L (7.0-40); AST/SGOT 20 U/L (<34); BILIRUBIN,TOTAL 0.5 MG/DL (0.3-1.2); BLOOD UREA NITROGEN 8 MG/DL (9-23); CALCIUM LEVEL 10.5 MG/DL (8.3-10.6); CARBON DIOXIDE LEVEL 27 MMOL/L (20-31); CHLORIDE LEVEL 98 MMOL/L (98-107); CHOLESTEROL LEVEL 166 MG/DL (<200); CHOLESTEROL RISK RATIO 2.07 (<5); CREATININE FOR GFR 0.62 MG/DL (0.55-1.30); GLOMERULAR FILTRATION RATE > 60.0 (>45); GLUCOSE, FASTING 102 MG/DL (74-106); HDL CHOLESTEROL 80.1 MG/DL (>40); LDL CHOLESTEROL 69.3 MG/DL (<100); MAGNESIUM LEVEL 1.5 MG/DL (1.8-2.4); NON-HDL-C 85.9 MG/DL; SODIUM LEVEL 133 MMOL/L (136-145); THYROID STIMULATING HORMONE 1.359 uIU/ML (0.55-4.78); TOTAL 25(OH) VITAMIN D 19.9 NG/ML (20.0-100.0); TOTAL PROTEIN 6.5 G/DL (5.7-8.2); TRIGLYCERIDES LEVEL 83 MG/DL (<150)
== END ==
LOC: M LAB REF 12:35
PROVIDERS: ATTEND Nurse Practitioner Family
DX: E66.3 Overweight (principal); Z79.899 Other long term (current) drug therapy

== ENCOUNTER → 2024-01-29 | Outpatient (REF) | payer MEDICARE ==
[~2024-01-29] MED LIST changes: -ROSU40TA4; +ROSU40TA81
[2024-01-29 12:29] LABS: BASO # 0.1 10^3/uL (0.0-0.2); BASO % 0.7 % (0.0-1.0); EOS % 0.4 % (0.0-3.0); HEMATOCRIT 42.9 % (36.0-47.0); HEMOGLOBIN 14.3 g/dl (12.0-15.5); LYMPH % 28.6 % (24.0-44.0); MEAN CORPUSCULAR HEMOGLOBIN 29.8 pg (27.0-33.0); MEAN CORPUSCULAR HGB CONC 33.3 g/dl (32.0-36.5); MEAN CORPUSCULAR VOLUME 89.4 fl (80.0-96.0); MONO # 0.5 10^3/uL (0.0-0.8); MONO % 7.7 % (2.0-8.0); NEUTROPHILS # 4.4 10^3/uL (1.5-8.5); NEUTROPHILS % 62.5 % (36.0-66.0); PLATELET COUNT, AUTOMATED 329 10^3/uL (150-450)
[2024-01-29 12:40] LABS: ALBUMIN 3.4 G/DL (3.2-5.2); ALKALINE PHOSPHATASE 114 U/L (35-104); ALT/SGPT 26 U/L (7.0-40); AST/SGOT 30 U/L (<34); BILIRUBIN,TOTAL 0.3 MG/DL (0.3-1.2); BLOOD UREA NITROGEN < 5 MG/DL (9-23); CALCIUM LEVEL 10.3 MG/DL (8.3-10.6); CARBON DIOXIDE LEVEL 26 MMOL/L (20-31); CHLORIDE LEVEL 106 MMOL/L (98-107); CREATININE FOR GFR 0.53 MG/DL (0.55-1.30); GLOMERULAR FILTRATION RATE > 60.0 (>45); GLUCOSE, FASTING 85 MG/DL (74-106); MAGNESIUM LEVEL 1.5 MG/DL (1.8-2.4); POTASSIUM SERUM 3.8 MMOL/L (3.5-5.1); SODIUM LEVEL 139 MMOL/L (136-145); TOTAL PROTEIN 6.6 G/DL (5.7-8.2)
== END ==
LOC: M LAB REF 12:05
PROVIDERS: ATTEND Nurse Practitioner Family
DX: E66.3 Overweight (principal)

== ENCOUNTER → 2024-05-14 | Outpatient (CLI) | payer MEDICARE | LOC: M WUC 10:42 | PROVIDERS: ATTEND Physician Assistant | DX: M25.531 Pain in right wrist (principal); S52.221A Displaced transverse fracture of shaft of right ulna, initial encounter for closed fracture; X58.XXXA Exposure to other specified factors, initial encounter; Y92.9 Unspecified place or not applicable; Y93.9 Activity, unspecified; Y99.9 Unspecified external cause status ==

== ENCOUNTER → 2024-06-18 | Outpatient (CLI) | payer MEDICARE | LOC: M WUC 10:16 | PROVIDERS: ATTEND Physician Assistant | DX: M47.814 Spondylosis without myelopathy or radiculopathy, thoracic region (principal); M54.6 Pain in thoracic spine; M25.511 Pain in right shoulder; Z87.81 Personal history of (healed) traumatic fracture ==

== ENCOUNTER → 2024-07-22 | Outpatient (CLI) | payer MEDICARE, MEDICAID | LOC: M WUC 09:04 | PROVIDERS: ATTEND Nurse Practitioner Family | DX: S82.832A Other fracture of upper and lower end of left fibula, initial encounter for closed fracture (principal); Y93.9 Activity, unspecified; Y92.9 Unspecified place or not applicable ==

== ENCOUNTER 2024-08-15 06:39 | Inpatient (IN) | payer MEDICARE, MEDICAID ==
[~2024-08-15] VITALS: Ht 170.2 cm; Wt 66.0 kg
[~2024-08-15 06:39] MED LIST changes: -FENO145T7; +FENO145T7 PO; -METO1TAB7; +METO1TAB7 PO; -ROSU40TA81; +ROSU40TA81 PO
[2024-08-15 07:11] LABS: BASO % 0.2 % (0.0-1.0); EOS % 0.1 % (0.0-3.0); HEMOGLOBIN 14.4 g/dl (12.0-15.5); LYMPH # 1.1 10^3/uL (1.5-5.0); LYMPH % 10.9 % (24.0-44.0); MEAN CORPUSCULAR HEMOGLOBIN 29.3 pg (27.0-33.0); MEAN CORPUSCULAR HGB CONC 33.5 g/dl (32.0-36.5); MEAN CORPUSCULAR VOLUME 87.4 fl (80.0-96.0); MONO # 0.9 10^3/uL (0.0-0.8); MONO % 9.1 % (2.0-8.0); NEUTROPHILS # 7.9 10^3/uL (1.5-8.5); NEUTROPHILS % 79.4 % (36.0-66.0); PLATELET COUNT, AUTOMATED 294 10^3/uL (150-450); RED BLOOD COUNT 4.92 10^6/uL (4.00-5.40)
[2024-08-15 07:24] LABS: INR 1.11; PROTHROMBIN TIME 14.6 SECONDS (12.5-14.5)
[2024-08-15 07:37] LABS: ALBUMIN 3.4 G/DL (3.2-5.2); BILIRUBIN,DIRECT 0.4 MG/DL (<0.4); BILIRUBIN,TOTAL 0.8 MG/DL (0.3-1.2); CK-MB VALUE MASS 1.4 NG/ML (<3.6); MB/CK RELATIVE INDEX 4.37 (< OR =4); TOTAL PROTEIN 6.3 G/DL (5.7-8.2)
[2024-08-15 07:55] LABS: MAGNESIUM LEVEL 1.2 MG/DL (1.8-2.4)
[2024-08-15 07:59] LABS: THYROID STIMULATING HORMONE 1.006 uIU/ML (0.55-4.78)
[2024-08-15] MEDS: MAG SULF 1GM/100ML (MAG RUN) 1 GM in IV 1 EA IV ONE ×2 (08:16→09:34)
[2024-08-15] MEDS ORDERED: ISOVUE-370 76% 100ML VIAL As Ordered ONE (08:19)
[2024-08-15] MEDS: METOPROLOL TART 50 MG TAB PO ONE ×2 (08:41→11:35)
[2024-08-15] MEDS: METOPROLOL 5 MG/5 ML VIAL IV SCH (08:42)
[2024-08-15] MEDS: DIGOXIN INJ 0.5 MG/2 ML AMP IV ONE ×3 (11:26→14:28)
[2024-08-15] MEDS: APIXABAN 5 MG TAB PO ONE (11:36)
[2024-08-15] MEDS ORDERED: diltiaZEM 125 MG in NS 100 ML IV SCH (14:10)
[2024-08-15] MEDS: dilTIAZem 25MG/5ML VIAL IV ONE (14:37)
[2024-08-15] MEDS: dilTIAZem HCL 125 MG in NS 100 ML IV SCH (14:38)
[2024-08-15] MEDS: OXAZEPAM 10MG CAP PO ONE (15:25)
[2024-08-15] MEDS ORDERED: OMEP-173 PO (15:31)
[2024-08-15] MEDS ORDERED: LISI10TA22 PO (15:31)
[2024-08-15] MEDS ORDERED: LEXA1TAB2 PO (15:31)
[2024-08-15] MEDS ORDERED: LORazepam 2 MG TAB PO PRN (15:35)
[2024-08-15] MEDS ORDERED: HOME MED LIST COMPLETE! XX SCH (15:35)
[2024-08-15] MEDS: dilTIAZem 25MG/5ML VIAL IV STA ×2 (15:59→17:02)
[2024-08-15 16:26] LABS: IONIZED CALCIUM 4.3 MG/DL (4.5-5.3)
[2024-08-15 16:58] LABS: MAGNESIUM LEVEL 1.5 MG/DL (1.8-2.4); PHOSPHORUS LEVEL 2.8 MG/DL (2.4-5.1)
[2024-08-15 17:00] LABS: BLOOD UREA NITROGEN 5 MG/DL (9-23); CALCIUM LEVEL 8.7 MG/DL (8.3-10.6); CARBON DIOXIDE LEVEL 22 MMOL/L (20-31); CHLORIDE LEVEL 97 MMOL/L (98-107); CK-MB VALUE MASS < 1.0 NG/ML (<3.6); CREATININE FOR GFR 0.36 MG/DL (0.55-1.30); GLOMERULAR FILTRATION RATE > 90.0 (>45); GLUCOSE, FASTING 109 MG/DL (74-106); POTASSIUM SERUM 3.9 MMOL/L (3.5-5.1); SODIUM LEVEL 132 MMOL/L (136-145)
[2024-08-15 17:02] LABS: FREE T4 1.61 NG/DL (0.89-1.76)
[2024-08-15 17:04] LABS: CPK CREATINE PHOSPHOKINASE 26 U/L (34-145); MB/CK RELATIVE INDEX 3.84 (< OR =4)
[2024-08-15 17:20] LABS: AMPHETAMINES LEVEL URINE NEGATIVE (NEGATIVE); BARBITURATES URINE NEGATIVE (NEGATIVE); COCAINE METABOLITE URINE NEGATIVE (NEGATIVE)
[2024-08-15 17:21] LABS: BENZODIAZEPINES URINE NEGATIVE (NEGATIVE); METHADONE URINE NEGATIVE (NEGATIVE); OPIATES URINE NEGATIVE (NEGATIVE); PHENCYCLIDINE URINE NEGATIVE (NEGATIVE)
[2024-08-15 17:22] LABS: CANNABINOIDS URINE POSITIVE (NEGATIVE)
[2024-08-15 17:32] VITALS: BP 156/96; TEMP 97; O2SAT 95
[2024-08-15] MEDS: MULTIVITAMINS/MINERALS THERAP 1 TAB PO SCH (17:55)
[2024-08-15] MEDS: FOLIC ACID 1MG TAB PO SCH (17:56)
[2024-08-15] MEDS: NICOTINE 14 MG/24 HR TRANSDERMAL TD SCH (17:56)
[2024-08-15] MEDS: THIAMINE 100 MG TAB PO SCH (17:56)
[2024-08-15] MEDS: SUCRALFATE 1 GM TAB PO SCH (17:56)
[2024-08-15] MEDS: MAG SULF 1GM/100ML (MAG RUN) 1 GM in IV 1 EA IV SCH (17:57)
[2024-08-15 20:03] VITALS: BP 131/84; TEMP 97.8; O2SAT 94
[2024-08-15] MEDS: ALBUTEROL 90 MCG/ACT 8GM HFA INHALER INH PRN (20:31)
[2024-08-15] MEDS: LOSARTAN 25 MG TAB PO SCH (20:59)
[2024-08-15] MEDS: METOPROLOL TART 50 MG TAB PO SCH (20:59)
[2024-08-15] MEDS: APIXABAN 5 MG TAB PO SCH (21:00)
[2024-08-15] MEDS: ACETAMINOPHEN 325 MG TAB PO PRN (21:00)
[2024-08-15 21:36] LABS: IONIZED CALCIUM 4.3 MG/DL (4.5-5.3)
[2024-08-15 22:00] VITALS: BP_SYST 108; BP_SYST 125; BP_DIAS 77; O2SAT 91
[2024-08-15] MEDS: diltiaZEM 125 MG in NS 100 ML IV SCH (22:00)
[2024-08-15 22:04] LABS: MAGNESIUM LEVEL 2.1 MG/DL (1.8-2.4); PHOSPHORUS LEVEL 2.3 MG/DL (2.4-5.1)
[2024-08-15 22:12] VITALS: BP 108/77; O2SAT 91
[2024-08-16] VITALS (7 sets, daily range): BP systolic 116–140; BP diastolic 69–94; TEMP 97–97.6; O2SAT 94–97
[2024-08-16] MEDS: K-PHOS NEUTRAL 250MG TABLET (SOD.PHOSPHATE/POT.PHOSPHATE) PO ONE (01:33)
[2024-08-16 04:03] LABS: HEMATOCRIT 40.2 % (36.0-47.0); HEMOGLOBIN 13.8 g/dl (12.0-15.5); MEAN CORPUSCULAR HEMOGLOBIN 29.5 pg (27.0-33.0); MEAN CORPUSCULAR HGB CONC 34.3 g/dl (32.0-36.5); MEAN CORPUSCULAR VOLUME 85.9 fl (80.0-96.0); PLATELET COUNT, AUTOMATED 240 10^3/uL (150-450); RED BLOOD COUNT 4.68 10^6/uL (4.00-5.40); WHITE BLOOD COUNT 9.4 10^3/uL (4.0-10.0)
[2024-08-16 04:25] LABS: BLOOD UREA NITROGEN 6 MG/DL (9-23); CALCIUM LEVEL 8.9 MG/DL (8.3-10.6); CARBON DIOXIDE LEVEL 25 MMOL/L (20-31); CHLORIDE LEVEL 97 MMOL/L (98-107); CREATININE FOR GFR 0.42 MG/DL (0.55-1.30); DIGOXIN LEVEL 1.3 NG/ML (0.8-2.0); GLOMERULAR FILTRATION RATE > 90.0 (>45); GLUCOSE, FASTING 101 MG/DL (74-106); POTASSIUM SERUM 3.4 MMOL/L (3.5-5.1); SODIUM LEVEL 131 MMOL/L (136-145)
[2024-08-16] MEDS ORDERED: TOPR100T PO (07:10)
[2024-08-16] MEDS ORDERED: SUCR1TA PO (07:10)
[2024-08-16] MEDS ORDERED: LOSA-527 PO (07:10)
[2024-08-16] MEDS ORDERED: ELIQ5TAB PO (07:10)
[2024-08-16] MEDS ORDERED: NICO14PA TD (07:10)
[2024-08-16] MEDS ORDERED: PANT40TA29 PO (07:10)
[2024-08-16] MEDS: POTASSIUM CHLORIDE 10MEQ SR TABLET PO ONE (07:57)
[2024-08-16] MEDS: METOPROLOL SUCC. 100MG *XL* TAB PO SCH (08:07)
[2024-08-16] MEDS ORDERED: DIGOXIN 0.25 MG TAB PO SCH (09:00)
[2024-08-16] MEDS: PANTOPRAZOLE 40MG TAB PO SCH (09:12)
[2024-08-16] MEDS ORDERED: TALK1KIT MC (09:14)
[2024-08-16] MEDS ORDERED: DIGO0.123 PO (09:14)
[2024-08-16] MEDS: DIGOXIN INJ 0.5 MG/2 ML AMP IV STA (09:29)
== END 2024-08-16 12:25 | disposition home or self-care (01) | DRG 310 ==
LOC: M ED 06:39 → M ED INP 15:24 → M ICU 17:24
PROVIDERS: ADMIT General Practice; ATTEND General Practice
DX: I48.92 Unspecified atrial flutter (principal); I16.0 Hypertensive urgency; I10 Essential (primary) hypertension; F10.10 Alcohol abuse, uncomplicated; E78.5 Hyperlipidemia, unspecified; F12.90 Cannabis use, unspecified, uncomplicated; E83.42 Hypomagnesemia; F41.8 Other specified anxiety disorders; K21.9 Gastro-esophageal reflux disease without esophagitis; F17.210 Nicotine dependence, cigarettes, uncomplicated; S82.832D Other fracture of upper and lower end of left fibula, subsequent encounter for closed fracture with routine healing; K44.9 Diaphragmatic hernia without obstruction or gangrene; Z85.828 Personal history of other malignant neoplasm of skin; Z79.899 Other long term (current) drug therapy

== ENCOUNTER 2024-09-29 10:39 | Emergency (ER) | payer MEDICARE, MEDICAID ==
[~2024-09-29] VITALS: Ht 172.7 cm; Wt 67.6 kg
[~2024-09-29 10:39] MED LIST changes: -FLUO-365 PO; -HYDR-3363 PO; -LOSA25TA13 PO; -METO1TAB33 PO; -OMEP10CASR PO; -PANT-23 PO
[2024-09-29] MEDS ORDERED: HYDR-3363 PO ×2 (11:25→12:53)
[2024-09-29] MEDS ORDERED: OMEP10CASR PO (11:25)
[2024-09-29 11:30] LABS: BASO # 0.0 10^3/uL (0.0-0.2); BASO % 0.6 % (0.0-1.0); EOS # 0.0 10^3/uL (0.0-0.5); EOS % 0.4 % (0.0-3.0); LYMPH # 2.2 10^3/uL (1.5-5.0); LYMPH % 32.0 % (24.0-44.0); MONO # 0.6 10^3/uL (0.0-0.8); MONO % 8.0 % (2.0-8.0); NEUTROPHILS # 4.1 10^3/uL (1.5-8.5); NEUTROPHILS % 58.7 % (36.0-66.0); PLATELET COUNT, AUTOMATED 259 10^3/uL (150-450)
[2024-09-29 11:48] LABS: CPK CREATINE PHOSPHOKINASE 28 U/L (34-145)
[2024-09-29 12:00] LABS: CALCIUM LEVEL 9.4 MG/DL (8.3-10.6); CARBON DIOXIDE LEVEL 26 MMOL/L (20-31); CHLORIDE LEVEL 100 MMOL/L (98-107); CK-MB VALUE MASS 3.2 NG/ML (<3.6); CREATININE FOR GFR 0.58 MG/DL (0.55-1.30); ETHYL ALCOHOL (ETHANOL) 0.004 % (0.000-0.010); GLOMERULAR FILTRATION RATE > 90.0 (>45); MAGNESIUM LEVEL 1.6 MG/DL (1.8-2.4); MB/CK RELATIVE INDEX 11.42 (< OR =4); POTASSIUM SERUM 4.4 MMOL/L (3.5-5.1); SODIUM LEVEL 137 MMOL/L (136-145)
[2024-09-29] MEDS: METOPROLOL TARTRATE 100 MG TAB PO ONE (12:00)
[2024-09-29] MEDS: METOPROLOL 5 MG/5 ML VIAL IV SCH ×2 (12:07→14:04)
[2024-09-29 12:20] LABS: DIGOXIN LEVEL 0.7 NG/ML (0.8-2.0)
[2024-09-29] MEDS: FUROSEMIDE 20 MG/2 ML VIAL IV ONE (12:20)
[2024-09-29] MEDS ORDERED: METO1TAB33 PO (12:51)
[2024-09-29] MEDS ORDERED: PANT-23 PO (12:51)
[2024-09-29] MEDS ORDERED: LOSA25TA13 PO (12:51)
[2024-09-29] MEDS ORDERED: FLUO-365 PO (12:51)
[2024-09-29] MEDS ORDERED: DIGO0.123 PO (12:51)
[2024-09-29] MEDS ORDERED: ELIQ5TAB PO (12:53)
[2024-09-29] MEDS ORDERED: HOME MED LIST COMPLETE! XX SCH (12:55)
[2024-09-29 13:18] LABS: CK-MB VALUE MASS 3.3 NG/ML (<3.6)
[2024-09-29 13:20] LABS: CPK CREATINE PHOSPHOKINASE 30.0 U/L (34-145); MB/CK RELATIVE INDEX 11.0 (< OR =4)
[2024-09-29] MEDS: DIGOXIN INJ 0.5 MG/2 ML AMP IV ONE (13:22)
[2024-09-29 16:25] VITALS: BP 151/116
[2024-09-29] MEDS: dilTIAZem 25 MG/5 ML VIAL IV STA (16:25)
[2024-09-29] MEDS: OXAZEPAM 15MG CAP PO ONE (16:38)
[2024-09-29 18:16] VITALS: BP 139/101; TEMP 97.1; O2SAT 95
== END 2024-09-29 18:23 | disposition home or self-care (01) ==
LOC: M ED 10:39
DX: I48.91 Unspecified atrial fibrillation (principal); I50.33 Acute on chronic diastolic (congestive) heart failure; Z91.128 Patient's intentional underdosing of medication regimen for other reason; I10 Essential (primary) hypertension; E78.5 Hyperlipidemia, unspecified; J44.9 Chronic obstructive pulmonary disease, unspecified; N18.30 Chronic kidney disease, stage 3 unspecified; F10.10 Alcohol abuse, uncomplicated; F17.200 Nicotine dependence, unspecified, uncomplicated; F12.10 Cannabis abuse, uncomplicated; Z88.8 Allergy status to other drugs, medicaments and biological substances; Z79.01 Long term (current) use of anticoagulants; Z79.899 Other long term (current) drug therapy
CPT/HCPCS: 71045; 80048; 80162; 82077; 82550; 82553; 83735; 84443; 84484; 85025; 93005; 93041; 94760; 96374; 96375; 96376; 99285; J0616; J1160; J1163; J1938

== ENCOUNTER → 2024-09-29 | Outpatient (REF) | payer MEDICARE, MEDICAID ==
[~2024-09-29] MED LIST changes: +DIGO0.123 PO; +ELIQ5TAB PO; +FLUO-365 PO; +HYDR-3363 PO; +LEXA1TAB2 PO; +LISI10TA22 PO; +LOSA-527 PO; +LOSA25TA13 PO; +METO1TAB33 PO; +NICO14PA TD; +OMEP-173 PO; +OMEP10CASR PO; +PANT-23 PO; +PANT40TA29 PO; +SUCR1TA PO; +TALK1KIT MC; +TOPR100T PO
[2024-09-29 15:22] LABS: BASO # 0.0 10^3/uL (0.0-0.2); BASO % 0.6 % (0.0-1.0); EOS # 0.0 10^3/uL (0.0-0.5); EOS % 0.3 % (0.0-3.0); LYMPH # 2.1 10^3/uL (1.5-5.0); LYMPH % 29.5 % (24.0-44.0); MONO # 0.6 10^3/uL (0.0-0.8); MONO % 8.3 % (2.0-8.0); NEUTROPHILS # 4.3 10^3/uL (1.5-8.5); NEUTROPHILS % 61.2 % (36.0-66.0); PLATELET COUNT, AUTOMATED 285 10^3/uL (150-450)
[2024-09-29 15:24] LABS: ALT/SGPT 23 U/L (7.0-40); AST/SGOT 26 U/L (<34); CALCIUM LEVEL 9.5 MG/DL (8.3-10.6); CARBON DIOXIDE LEVEL 25 MMOL/L (20-31); CHLORIDE LEVEL 101 MMOL/L (98-107); CREATININE FOR GFR 0.61 MG/DL (0.55-1.30); GLOMERULAR FILTRATION RATE > 90.0 (>45); POTASSIUM SERUM 4.6 MMOL/L (3.5-5.1); SODIUM LEVEL 138 MMOL/L (136-145)
[2024-09-29 15:26] LABS: FREE T4 1.21 NG/DL (0.89-1.76)
== END ==
LOC: M LAB REF 14:26
PROVIDERS: ATTEND Family Medicine Addiction Medicine
DX: I10 Essential (primary) hypertension (principal); R06.00 Dyspnea, unspecified

== ENCOUNTER → 2024-10-18 | Outpatient (CLI) | payer MEDICARE, MEDICAID ==
[~2024-10-18] MED LIST changes: +FLUO-365 PO; +HYDR-3363 PO; +LOSA25TA13 PO; +METO1TAB33 PO; +OMEP10CASR PO; +PANT-23 PO
== END ==
LOC: M RAD 14:49
PROVIDERS: ATTEND Student in an Organized Health Care Education/Training Program
DX: M79.661 Pain in right lower leg (principal); M79.662 Pain in left lower leg

== ENCOUNTER → 2024-12-17 | Outpatient (REF) | payer MEDICARE, MEDICAID | LOC: M LAB REF 13:21 | PROVIDERS: ATTEND Internal Medicine Gastroenterology | DX: R19.7 Diarrhea, unspecified (principal); K52.831 Collagenous colitis; A04.0 Enteropathogenic Escherichia coli infection ==

== ENCOUNTER 2025-01-22 08:04 | Emergency (ER) | payer MEDICARE, MEDICAID ==
[2025-01-22] MEDS: PERCOCET 5MG/325MG TAB PO ONE (12:26)
[2025-01-22] MEDS ORDERED: PERC5TAB12 PO (12:46)
[2025-01-22 13:09] VITALS: BP 182/91; TEMP 97.9; O2SAT 96
== END 2025-01-22 13:20 | disposition home or self-care (01) ==
LOC: M ED 08:04
DX: S22.42XA Multiple fractures of ribs, left side, initial encounter for closed fracture (principal); W01.198A Fall on same level from slipping, tripping and stumbling with subsequent striking against other object, initial encounter; I10 Essential (primary) hypertension; E78.5 Hyperlipidemia, unspecified; F41.9 Anxiety disorder, unspecified; F32.A Depression, unspecified; F10.10 Alcohol abuse, uncomplicated; F17.200 Nicotine dependence, unspecified, uncomplicated; Y92.009 Unspecified place in unspecified non-institutional (private) residence as the place of occurrence of the external cause; Y93.89 Activity, other specified; Y99.9 Unspecified external cause status; Z79.01 Long term (current) use of anticoagulants; Z79.899 Other long term (current) drug therapy; Z88.8 Allergy status to other drugs, medicaments and biological substances

== ENCOUNTER → 2025-02-01 | Outpatient (REF) | payer MEDICARE, MEDICAID ==
[~2025-02-01] MED LIST changes: +PERC5TAB12 PO
[2025-02-01 14:26] LABS: ALT/SGPT 18 U/L (7.0-40); AST/SGOT 18 U/L (<34); C REACTIVE PROTEIN QUANTITATIV < 0.50 MG/DL (<1.0); CALCIUM LEVEL 9.4 MG/DL (8.3-10.6); CARBON DIOXIDE LEVEL 26 MMOL/L (20-31); CHLORIDE LEVEL 100 MMOL/L (98-107); CREATININE FOR GFR 0.54 MG/DL (0.55-1.30); GLOMERULAR FILTRATION RATE > 90.0 (>45); POTASSIUM SERUM 4.6 MMOL/L (3.5-5.1); SODIUM LEVEL 133 MMOL/L (136-145)
[2025-02-01 14:27] LABS: BASO # 0.0 10^3/uL (0.0-0.2); BASO % 0.3 % (0.0-1.0); EOS # 0.0 10^3/uL (0.0-0.5); EOS % 0.2 % (0.0-3.0); LYMPH # 1.3 10^3/uL (1.5-5.0); LYMPH % 14.5 % (24.0-44.0); MONO # 0.2 10^3/uL (0.0-0.8); MONO % 2.1 % (2.0-8.0); NEUTROPHILS # 7.4 10^3/uL (1.5-8.5); NEUTROPHILS % 82.2 % (36.0-66.0); PLATELET COUNT, AUTOMATED 341 10^3/uL (150-450)
[2025-02-01 14:59] LABS: HIV 1&2 SCREEN NEGATIVE (NEGATIVE)
[2025-02-01 15:07] LABS: HEPATITIS C VIRUS ABY INDEX < 0.02 INDEX (<0.8)
== END ==
LOC: M LAB REF 13:57
PROVIDERS: ATTEND Student in an Organized Health Care Education/Training Program
DX: K52.9 Noninfective gastroenteritis and colitis, unspecified (principal); R63.4 Abnormal weight loss